=== PATIENT | female | born 1960 | race Caucasian/White ===

== ENCOUNTER 2021-05-18 02:59 | Inpatient (IN) | payer BC ==
--- NOTE | 2021-05-18 03:33 | EDPHYS ---
Physician Documentation [facility] Name: Mabel Gastelum Age: 61 yrs Sex: Female : 1960 Arrival Date: 05/18/2021 Time: 03:00 Bed 4 Private MD: ED Physician Anton Quinones HPI: 05/18 03:26 This 61 yrs old Female presents to ER via EMS with complaints of Shortness Of jana Breath. 03:26 The patient has shortness of breath at rest, with light activity. Onset: The jana symptoms/episode began/occurred 1 day(s) ago. Duration: The symptoms are continuous, and are steadily getting worse. The patient's shortness of breath is aggravated by coughing, supine position, talking, walking, is alleviated by elevating head, rest, application of supplemental oxygen. Associated signs and symptoms: Pertinent positives: non-productive cough. Severity of symptoms: At their worst the symptoms were mild moderate in the emergency department the symptoms are unchanged. The patient has not experienced similar symptoms in the past. Historical: - Allergies: 03:03 No Known Allergies; em - PMHx: 03:03 Asthma; em - Immunization history:: Adult Immunizations up to date. - Social history:: Smoking status: Patient denies any tobacco usage or history of. - Family history:: not pertinent. ROS: 03:26 Constitutional: Negative for fever, chills, and weight loss, Eyes: Negative for injury, jana pain, redness, and discharge, ENT: Negative for injury, pain, and discharge, Neck: Negative for injury, pain, and swelling, Cardiovascular: Negative for chest pain, palpitations, and edema, Abdomen/GI: Negative for abdominal pain, nausea, vomiting, diarrhea, and constipation, Back: Negative for injury and pain, : Negative for injury, bleeding, discharge, and swelling, MS/Extremity: Negative for injury and deformity, Skin: Negative for injury, rash, and discoloration, Neuro: Negative for headache, weakness, numbness, tingling, and seizure, Psych: Negative for depression, anxiety, suicide ideation, homicidal ideation, and hallucinations, Allergy/Immunology: Negative for hives, rash, and allergies, Endocrine: Negative for neck swelling, polydipsia, polyuria, polyphagia, and marked weight changes, Hematologic/Lymphatic: Negative for swollen nodes, abnormal bleeding, and unusual bruising. 03:26 Respiratory: Positive for cough, shortness of breath, wheezing, expiratory. Exam: 03:27 Constitutional: This is a well developed, well nourished patient who is awake, alert, jana and in no acute distress. Head/Face: Normocephalic, atraumatic. Eyes: Pupils equal round and reactive to light, extra-ocular motions intact. Lids and lashes normal. Conjunctiva and sclera are non-icteric and not injected. Cornea within normal limits. Periorbital areas with no swelling, redness, or edema. ENT: Nares patent. No nasal discharge, no septal abnormalities noted. Tympanic membranes are normal and external auditory canals are clear. Oropharynx with no redness, swelling, or masses, exudates, or evidence of obstruction, uvula midline. Mucous membranes moist. Neck: Trachea midline, no thyromegaly or masses palpated, and no cervical lymphadenopathy. Supple, full range of motion without nuchal rigidity, or vertebral point tenderness. No Meningismus. Chest/axilla: Normal chest wall appearance and motion. Nontender with no deformity. No lesions are appreciated. Cardiovascular: Regular rate and rhythm with a normal S1 and S2. No gallops, murmurs, or rubs. Normal PMI, no JVD. No pulse deficits. Abdomen/GI: Soft, non-tender, with normal bowel sounds. No distension or tympany. No guarding or rebound. No evidence of tenderness throughout. Back: No spinal tenderness. No costovertebral tenderness. Full range of motion. Female : Normal external genitalia. Skin: Warm, dry with normal turgor. Normal color with no rashes, no lesions, and no evidence of cellulitis. MS/ Extremity: Pulses equal, no cyanosis. Neurovascular intact. Full, normal range of motion. Neuro: Awake and alert, GCS 15, oriented to person, place, time, and situation. Cranial nerves II-XII grossly intact. Motor strength 5/5 in all extremities. Sensory grossly intact. Cerebellar exam normal. Normal gait. Psych: Awake, alert, with orientation to person, place and time. Behavior, mood, and affect are within normal limits. 03:27 Respiratory: the patient does not display signs of respiratory distress, Respirations: labored breathing, that is mild, Breath sounds: bronchial sounds, that are mild, are scattered, decreased breath sounds, that are mild, are scattered, rhonchi, that are moderate, are heard in the right upper lobe, right posterior upper lobe and right posterior middle lobe, Respiratory rate: 22 04:40 ECG was reviewed by the Attending Physician. [facility] Vital Signs: 03:01 BP 111 / 94; Pulse 81; Resp 22; Pulse Ox 100% on R/A; em 03:05 Temp 98.9; em 04:11 Weight 77.11 kg (R); Height 5 ft. 6 in. (167.64 cm); em 19:50 BP 108 / 82; Pulse 55; Resp 22; Temp 99; Pulse Ox 97% on 6 lpm NC; ea 04:11 Body Mass Index 27.44 (77.11 kg, 167.64 cm) em MDM: 03:09 Patient medically screened. jana 03:28 Differential diagnosis: Anxiety Reaction Bronchitis CHF exacerbation, Chronic jana Obstructive Pulmonary Disease Myocardial Infarction pneumonia, Pneumothorax pulmonary edema, Pulmonary Embolism reactive airway disease. Antibiotic administration: Rocephin and Zithromax given. The patient's Wells Deep Vein Thrombosis Score was calculated as follows: Total Score: 0-2 Pts- Low Risk. The patient's pulmonary embolism risk score was calculated as follows: Total Score: 0-2 points. This patient was found to be at low risk for a pulmonary embolism by using the Well's assessment criteria. Immunization status: Influenza vaccine: Data reviewed: vital signs, nurses notes, lab test result(s), EKG, radiologic studies. Data interpreted: library monitor: rate is 81 beats/min, rhythm is regular, Pulse oximetry: on room air is 85 %. Test interpretation: by ED physician or midlevel provider: ECG, plain radiologic studies. Counseling: I had a detailed discussion with the patient and/or guardian regarding: the historical points, exam findings, and any diagnostic results supporting the discharge/admit diagnosis, lab results, radiology results, the need for further work-up and treatment in the hospital. 05/18 03:04 Order name: Basic Metabolic Panel 05/18 03:04 Order name: CBC with Diff la05/18 03:04 Order name: LFT's 05/18 03:04 Order name: Magnesium la05/18 03:04 Order name: NT PRO-BNP 05/18 03:04 Order name: PT-INR; Complete Time: 04:38 la1 05/18 03:04 Order name: Troponin (emerg Dept Use Only) la05/18 03:04 Order name: CRP la05/18 03:04 Order name: Ferritin la1 05/18 03:04 Order name: DD; Complete Time: 04:38 la1 05/18 03:04 Order name: Blood Culture Adult (2) la1 05/18 03:05 Order name: Basic Metabolic Panel EDMS 05/18 03:05 Order name: CBC with Automated Diff; Complete Time: 04:38 EDMS 05/18 03:05 Order name: COVID-19 : Document "Date of Symptom Onset" if Symptomatic. em 05/18 03:04 Order name: XRAY Chest (1 view) la05/18 03:04 Order name: EKG; Complete Time: 03:05 la1 05/18 03:04 Order name: Cardiac monitoring; Complete Time: 03:33 la05/18 03:04 Order name: EKG - Nurse/Tech; Complete Time: 04:40 la05/18 03:04 Order name: IV Saline Lock; Complete Time: 03:33 la05/18 03:04 Order name: Labs collected and sent; Complete Time: 03:33 la05/18 03:04 Order name: O2 Per Protocol; Complete Time: 03:33 la05/18 03:04 Order name: O2 Sat Monitoring; Complete Time: 03:33 la05/18 03:46 Order name: BIPAP em 05/18 06:12 Order name: SARS-COV-2 RT PCR EDMS EC:40 Rate is 67 beats/min. Rhythm is regular. QRS [place] is Normal. CA interval is normal. QRS jana interval is normal. QT interval is normal. No Q waves. T waves are Normal. No ST changes noted. Clinical impression: NSR w/ Non-specific ST/T Changes and No evidence of ischemia. Interpreted by me. Reviewed by me. Administered Medications: 03:33 Not Given (Physician Discretion): Ivermectin 12 mg PO once; as a single dose em 04:09 Drug: Rocephin (cefTRIAXone) 1 grams Route: IV; Rate: per protocol; Site: right em antecubital; 04:15 Follow up: Response: No adverse reaction; IV Status: Completed infusion; IV Intake: 10mlem 04:09 Drug: Zithromax (azithromycin) 500 mg Route: IVPB; Infused Over: 1 hrs; Site: right em antecubital; 05:34 Follow up: Response: No adverse reaction; IV Status: Completed infusion; IV Intake: em 250ml 04:09 Drug: Aspirin Chewable Tablet 162 mg Route: PO; em 04:15 Follow up: Response: No adverse reaction em 04:09 Drug: Pepcid (famotidine) 20 mg Route: IVP; Site: right antecubital; em 04:15 Follow up: Response: No adverse reaction em 04:09 Drug: Lovenox (enoxaparin) 40 mg Route: Sub-Q; Site: right lower abdomen; em 04:15 Follow up: Response: No adverse reaction em Disposition Summary: 05/18/21 03:33 Hospitalization Ordered Hospitalization Status: Inpatient Admission jana Provider: Soniya Barillas cha Condition: Stable jana Problem: new jana Symptoms: have improved jana Bed/Room Type: Standard jana Location: Telemetry/MedSurg (Inpatient)(05/18/21 17:30) eb Room Assignment: 402(05/18/21 17:30) eb Diagnosis - Hypoxemia jana - Dyspnea jana - Other viral pneumonia jana - Pneumonia due to SARS-associated coronavirus - Covid 19 jana - Obesity, unspecified jana Forms: - Medication Reconciliation Form jana - SBAR form jana Signatures: Dispatcher [employer] Jacinda Harris RN RN mw Anderson, Corey, MD MD cha Munoz, Edgar, RN RN em Attema, Lee, FNP-C ALVERT[facility]-Candi [place] Corrections: (The following items were deleted from the chart) 03:37 03:33 Telemetry/MedSurg (Inpatient) jana mw 03:37 03:33 jana mw 17:30 03:37 [facility] ER HOLD mw eb 17:30 03:37 ERHOLD- eb
--- NOTE | 2021-05-18 03:33 | ER ---
Nurse's Notes [facility] Name: Mabel Gastelum Age: 61 yrs Sex: Female : 1960 Arrival Date: 05/18/2021 Time: 03:00 Bed 4 Private MD: Diagnosis: Hypoxemia;Dyspnea;Other viral pneumonia;Pneumonia due to SARS-associated coronavirus-Covid 19;Obesity, unspecified Presentation: 05/18 03:01 Chief complaint: EMS states: tested positive for covid 3 weeks ago, developed shortness em of breath and a fever, was 85% RA at home, placed on BiPAP, was given 125 mg Solu-Medrol, 2 G magnesium sulfate, 3 albuterol treatments and 1 G Tylenol for fever, reports chest pain. Coronavirus screen: difficulty breathing, fever, shortness of breath, Client presents with at least one sign or symptom that may indicate coronavirus-19. Standard/surgical mask placed on the client. Provider contacted for isolation considerations. Ebola Screen: Patient negative for fever greater than or equal to 101.5 degrees Fahrenheit, and additional compatible Ebola Virus Disease symptoms Patient denies exposure to infectious person. Patient denies travel to an Ebola-affected area in the 21 days before illness onset. No symptoms or risks identified at this time. Initial Sepsis Screen: Does the patient meet any 2 criteria? No. Patient's initial sepsis screen is negative. Does the patient have a suspected source of infection? Yes: Productive cough/pneumonia. Risk Assessment: Do you want to hurt yourself or someone else? Patient reports no desire to harm self or others. Onset of symptoms was May 18, 2021. 03:01 Method Of Arrival: EMS: [facility] em 03:01 Acuity: MICHAEL 3 em Historical: - Allergies: 03:03 No Known Allergies; em - PMHx: 03:03 Asthma; em - Immunization history:: Adult Immunizations up to date. - Social history:: Smoking status: Patient denies any tobacco usage or history of. - Family history:: not pertinent. Screenin:04 Abuse screen: Denies threats or abuse. Nutritional screening: No deficits noted. em Tuberculosis screening: No symptoms or risk factors identified. Fall Risk None identified. Assessment: 03:00 General: Appears in no apparent distress. comfortable, Behavior is calm, cooperative, em appropriate for age, Reports fever for > 3 days. Pain: Complains of pain in chest Pain currently is 7 out of 10 on a pain scale. Neuro: Level of Consciousness is awake, alert, obeys commands, Oriented to person, place, time, situation, Appropriate for age. Cardiovascular: Reports chest pain, Capillary refill < 3 seconds Patient's skin is warm and dry. Rhythm is sinus rhythm. Respiratory: Airway is patent Respiratory effort is even, unlabored, Respiratory pattern is regular, symmetrical, Breath sounds are diminished bilaterally. Derm: Skin is intact, is healthy with good turgor, Skin is pink, warm \T\ dry. Musculoskeletal: Capillary refill < 3 seconds, Range of motion: intact in all extremities. 19:49 Reassessment: Patient and/or family updated on plan of care and expected duration. Pain ea level reassessed. Patient is alert, oriented x 3, equal unlabored respirations, skin warm/dry/pink. Pt remains on 6L per nasal cannula. Report given to receiving nurse, pt left ED via stretcher per ED nurse, pt tolerating well. Vital Signs: 03:01 BP 111 / 94; Pulse 81; Resp 22; Pulse Ox 100% on R/A; em 03:05 Temp 98.9; em 04:11 Weight 77.11 kg (R); Height 5 ft. 6 in. (167.64 cm); em 19:50 BP 108 / 82; Pulse 55; Resp 22; Temp 99; Pulse Ox 97% on 6 lpm NC; ea 04:11 Body Mass Index 27.44 (77.11 kg, 167.64 cm) em ED Course: 03:00 Patient arrived in ED. em 03:01 Kevin Erickson, RN is Primary Nurse. em 03:03 Triage completed. em 03:03 Arm band placed on. em 03:04 Patient has correct armband on for positive identification. em 03:09 Anton Quinones MD is Attending Physician. jana 03:30 Soniya Barillas MD is Hospitalizing Provider. jana 03:33 Maintain EMS IV. Dressing intact. Good blood return noted. Site clean \T\ dry. Gauge \T\ em site: 18 RAC. 04:10 XRAY Chest (1 view) In Process Unspecified. EDMS 04:12 No provider procedures requiring assistance completed. Patient admitted, IV remains in em place. 13:23 Primary Nurse role handed off by Kevin Erickson, RN robb Administered Medications: 03:33 Not Given (Physician Discretion): Ivermectin 12 mg PO once; as a single dose em 04:09 Drug: Rocephin (cefTRIAXone) 1 grams Route: IV; Rate: per protocol; Site: right em antecubital; 04:15 Follow up: Response: No adverse reaction; IV Status: Completed infusion; IV Intake: 10mlem 04:09 Drug: Zithromax (azithromycin) 500 mg Route: IVPB; Infused Over: 1 hrs; Site: right em antecubital; 05:34 Follow up: Response: No adverse reaction; IV Status: Completed infusion; IV Intake: em 250ml 04:09 Drug: Aspirin Chewable Tablet 162 mg Route: PO; em 04:15 Follow up: Response: No adverse reaction em 04:09 Drug: Pepcid (famotidine) 20 mg Route: IVP; Site: right antecubital; em 04:15 Follow up: Response: No adverse reaction em 04:09 Drug: Lovenox (enoxaparin) 40 mg Route: Sub-Q; Site: right lower abdomen; em 04:15 Follow up: Response: No adverse reaction em Intake: 04:15 IV: 10ml; Total: 10ml. em 05:34 IV: 250ml; Total: 260ml. em Outcome: 03:33 Decision to Hospitalize by Provider. jana 04:12 Admitted to ER Hold. Please see [facility] for further documentation. em 04:12 Condition: stable 04:12 Instructed on the need for admit, Demonstrated understanding of instructions. 19:51 Patient left the ED. ea Signatures: Dispatcher [employer] Anton Chavira MD MD cha Munoz, Edgar, RN RN Ebonie Justice RN RN ea Botello, Elizabeth eb
[2021-05-18 03:49] LABS: Absolute Lymphocytes (CBC) 0.3 K/uL (0.7-4.9); Basophils % 0.2 % (0-1.3); Hematocrit 40.4 % (36.0-45.0); Lymphocytes % 6.8 % (15.3-44.8); MPV 9.1 fL (7.6-11.3); RBC Red Blood Cell Count 4.61 M/uL (3.86-4.86)
[2021-05-18] MEDS ORDERED: AZITHROMYCIN 500 MG INJ IVPB ONE (04:05)
[2021-05-18] MEDS ORDERED: NA CHLORIDE 0.9% 250 ML ONE (04:05)
[2021-05-18] MEDS ORDERED: ENOXAPARIN 40 MG/0.4 ML SQ ONE ×2 (04:06→08:47)
[2021-05-18] MEDS ORDERED: FAMOTIDINE 20 MG/2 ML VIAL IV ONE (04:06)
[2021-05-18] MEDS ORDERED: CEFTRIAXONE/SWI 1gm 1 GM/10 ML SYR ONE (04:06)
[2021-05-18 04:12] LABS: Protime INR 0.97
--- NOTE | 2021-05-18 04:15 | P.HP ---
Certification for Inpatient Patient admitted to: Inpatient With expected LOS: >2 Midnights Patient will require the following post-hospital care: None Practitioner: I am a practitioner with admitting privileges, knowledge of patient current condition, hospital course, and medical plan of care. Services: Services provided to patient in accordance with Admission requirements found in Title 42 Section 412.3 of the Code of Federal Regulations <Laurent Clinton - Last Filed: 05/18/21 04:11> Patient History Date of Service: 05/18/21 Primary Care Provider: None Reason for admission: COVID-19 pneumonia History of Present Illness: 61-year-old female with history of asthma [facility]. Patient reports testing positive for Covid approximately 3 weeks prior. Patient was brought in by EMS on BiPAP for respiratory distress, room air saturations in the 80s. Patient evaluated in the emergency department, requiring submental oxygen to maintain saturations greater 90%, chest x-ray with Covid pattern, ED provider wishes to admit for hypoxic respiratory failure secondary to COVID-19 pneumonia. - Past Medical/Surgical History -: Asthma -: None Psychosocial/ Personal History: Patient lives with her son - Family History Family History: Reviewed- Non-Contributory - Social History Smoking Status: Never smoker Alcohol use: No CD- Drugs: No Caffeine use: Yes Place of Residence: Home <Laurent Clinton - Last Filed: 05/18/21 04:11> Date of Service: 05/18/21 <Soniya Barillas - Last Filed: 05/18/21 20:29> Review of Systems 10-point ROS is otherwise unremarkable General: Fever, Chills, Weakness, Malaise Respiratory: Cough, Dry, Shortness of Breath <OzLaurent - Last Filed: 05/18/21 04:11> Physical Examination - Physical Exam General: Alert, In no apparent distress HEENT: Atraumatic, PERRLA, Mucous membr. moist/pink, EOMI, Sclerae nonicteric Neck: Supple, 2+ carotid pulse no bruit, No LAD, Without JVD or thyroid abnormality Respiratory: Diminished, Other (Increased respiratory effort) Cardiovascular: Regular rate/rhythm, Normal S1 S2 Gastrointestinal: Normal bowel sounds, No tenderness Musculoskeletal: No tenderness Integumentary: No rashes Neurological: Normal gait, Normal speech, Normal strength at 5/5 x4 extr, Normal tone, Normal affect Lymphatics: No axilla or inguinal lymphadenopathy - Studies Laboratory Data (last 24 hrs) 05/18/21 03:25: WBC 4.90, Hgb 13.6, Hct 40.4, Plt Count 168 <Laurent Clinton - Last Filed: 05/18/21 04:11> - Studies Laboratory Data (last 24 hrs) 05/18/21 03:25: PT 11.6, INR 0.97 05/18/21 03:25: WBC 4.90, Hgb 13.6, Hct 40.4, Plt Count 168 05/18/21 03:25: Sodium 135 L, Potassium 4.0, BUN 14, Creatinine 0.75, Glucose 148 H, Magnesium 2.6 H, Total Bilirubin 0.5, AST 61 H, ALT 41, Alkaline Phosphatase 71 <Soniya Barillas - Last Filed: 05/18/21 20:29> Assessment and Plan - Plan Assessment: Acute hypoxic respiratory failure secondary to COVID-19 pneumonia complicated with history of asthma, obesity Plan: Acute hypoxic respiratory failure secondary to COVID-19 pneumonia complicated with history of asthma, obesity: Continue with IV steroids, oral supplements, supplemental oxygen as needed, respiratory therapy consult in place. Daily room air saturations. We will continue with ivermectin, patient likely candidate for baricitinib. Appreciate further input from pulmonology. DVT PPX: Lovenox Code status: Full Discharge Plan: Home Plan to discharge in: Greater than 2 days - Advance Directives Does patient have a Living Will: No Does patient have a Durable POA for Healthcare: No - Code Status/Comfort Care Code Status Assessed: Yes (Full code) Critical Care: No Time Spent Managing Pts Care (In Minutes): 55 <Laurent Clinton - Last Filed: 05/18/21 04:11> Date of Service: 05/18/21 Subjective: Patient remains tachypneic in on 5 L of oxygen. Physical Examination: Vitals: Afebrile vital signs are stable Physical exam: Cardiovascular: Within normal limits. Lungs: Diminished bilaterally Abdomen: Within normal limits Neuro: Awake, alert, oriented to person place and time Assessment: 1. COVID-19 pneumonia 2. Hypoxemia Plan: 1. Continue with current plan of care <Soniya Barillas - Last Filed: 05/18/21 20:29>
[2021-05-18] MEDS ORDERED: ALBUTEROL INHALER 60 PUFF/8 GM IH PRN (05:16)
[2021-05-18] MEDS ORDERED: ACETAMINOPHEN 500 MG TAB PO PRN (05:16)
[2021-05-18] MEDS ORDERED: MELATONIN 5 MG TABLET PO PRN (05:16)
[2021-05-18 05:51] LABS: Albumin 2.4 g/dL (3.4-5.0); Bilirubin Direct 0.2 mg/dL (0-0.2); Bilirubin Total 0.5 mg/dL (0.2-1.0); Magnesium 2.6 mg/dL (1.8-2.4); Protein, Total 6.3 g/dL (6.4-8.2); Troponin (Emerg Dept Use Only) 0.05 ng/mL (0.0-0.045)
[2021-05-18 06:07] LABS: Ferritin 538.3 ng/mL (8-388)
[2021-05-18] MEDS ORDERED: METHYLPREDNISOLONE 125 MG INJ ONE (08:46)
[2021-05-18] MEDS ORDERED: ZINC SULFATE 220 MG CAP ONE (08:46)
[2021-05-18] MEDS ORDERED: THIAMINE HCL 100 MG TABLET ONE (08:46)
[2021-05-18] MEDS ORDERED: VITAMIN D 1000 UNIT TAB ONE (08:47)
[2021-05-18] MEDS ORDERED: ASPIRIN EC 81 MG TAB PO ONE (08:47)
[2021-05-18] MEDS ORDERED: ASCORBIC ACID 500 MG TABLET ONE ×3 (08:47→17:57)
[2021-05-18] MEDS: ENOXAPARIN 40 MG/0.4 ML SQ SCH (09:00)
[2021-05-18] MEDS: ASPIRIN EC 81 MG TAB PO SCH (09:00)
[2021-05-18] MEDS: ZINC SULFATE 220 MG CAP PO SCH (09:00)
[2021-05-18] MEDS: IVERMECTIN 3 MG TABLET PO SCH (09:00)
[2021-05-18] MEDS: VITAMIN D 1000 UNIT TAB PO SCH (09:00)
[2021-05-18] MEDS: METHYLPREDNISOLONE 125 MG INJ IV SCH ×2 (09:00→20:25)
[2021-05-18] MEDS: THIAMINE HCL 100 MG TABLET PO SCH (09:00)
[2021-05-18] MEDS: ASCORBIC ACID 500 MG TABLET PO SCH ×4 (09:00→20:25)
--- NOTE | 2021-05-18 10:15 | RAD REPORT ---
EXAM DESCRIPTION: RAD - Chest Single View - 05/18/2021 4:10 am CLINICAL HISTORY: SOB Chest pain. COMPARISON: No comparisons FINDINGS: Portable technique limits examination quality. Moderate to significant asymmetric pulmonary opacities are present, greater on the right. This is eugenio picious for viral infection/ bronchitis. The heart is mildly enlarged in size. No displaced fractures .
[2021-05-18] MEDS ORDERED: ONDANSETRON 4 MG/2 ML VIAL ONE (10:22)
[2021-05-18] MEDS: ONDANSETRON 4 MG/2 ML VIAL IV PRN (10:30)
[2021-05-18] MEDS: BENZONATATE 100 MG CAP PO PRN (12:39)
[2021-05-18] MEDS ORDERED: BENZONATATE 100 MG CAP PO ONE (12:44)
[2021-05-18] MEDS ORDERED: ALBUTEROL INHALER 60 PUFF/8 GM IH ONE (15:12)
--- NOTE | 2021-05-18 20:31 | P.PN ---
Subjective Date of Service: 05/18/21 Patient doing well. No new complaints. Will need to arrange for home oxygen Review of Systems 10-point ROS is otherwise unremarkable Physical Examination - Vital Signs Temperature: 99 F Blood Pressure: 108/82 Pulse: 55 Respirations: 22 Pulse Ox (%): 94 - Physical Exam General: Alert, In no apparent distress, Oriented x3 HEENT: Atraumatic, PERRLA, EOMI Neck: Supple, JVD not distended Respiratory: Clear to auscultation bilaterally, Normal air movement Cardiovascular: Regular rate/rhythm, Normal S1 S2 Gastrointestinal: Normal bowel sounds, No tenderness Musculoskeletal: No tenderness Integumentary: No rashes Neurological: Normal speech, Normal tone, Normal affect Lymphatics: No axilla or inguinal lymphadenopathy - Studies Laboratory Data (last 24 hrs) 05/18/21 03:25: PT 11.6, INR 0.97 05/18/21 03:25: WBC 4.90, Hgb 13.6, Hct 40.4, Plt Count 168 05/18/21 03:25: Sodium 135 L, Potassium 4.0, BUN 14, Creatinine 0.75, Glucose 148 H, Magnesium 2.6 H, Total Bilirubin 0.5, AST 61 H, ALT 41, Alkaline Phosphatase 71 Medications List Reviewed: Yes Assessment & Plan - Problems (Diagnosis) (1) Pneumonia due to COVID-19 virus Current Visit: Yes Status: Acute - Plan 1. Continue with IV steroids 2. Monitor inflammatory markers 3. Repeat chest x-ray is symptoms are progressively worsening 4. O2 per protocol 5. Pulmonary consultation 6. Continue with albuterol inhaler therapy; also supportive care 7. GI and DVT prophylaxis Discharge Plan: Home Plan to discharge in: Greater than 2 days - Advance Directives Does patient have a Living Will: No Does patient have a Durable POA for Healthcare: No - Code Status/Comfort Care Code Status Assessed: Yes Code Status: Full Code Critical Care: No Time Spent Managing PTS Care (In Minutes): 35
[2021-05-19] MEDS: BENZONATATE 100 MG CAP PO PRN ×2 (01:29→08:59)
[2021-05-19] MEDS: ONDANSETRON 4 MG/2 ML VIAL IV PRN ×2 (04:01→12:36)
[2021-05-19 04:41] LABS: Absolute Lymphocytes (CBC) 0.3 K/uL (0.7-4.9); Basophils % 0.1 % (0-1.3); Hematocrit 38.1 % (36.0-45.0); Lymphocytes % 4.4 % (15.3-44.8); MPV 9.9 fL (7.6-11.3); RBC Red Blood Cell Count 4.29 M/uL (3.86-4.86)
[2021-05-19 05:04] LABS: ALT/SGPT 46 U/L (12-78); AST/SGOT 39 U/L (15-37); Albumin 2.4 g/dL (3.4-5.0); Alkaline Phosphatase 66 U/L (45-117); BUN Blood Urea Nitrogen 21 mg/dL (7-18); Bicarbonate 31 mmol/L (21-32); Bilirubin Total 0.4 mg/dL (0.2-1.0); Ferritin 464.8 ng/mL (8-388); Glucose Level 205 mg/dL (74-106); Potassium 4.1 mmol/L (3.5-5.1); Protein, Total 6.2 g/dL (6.4-8.2); Sodium Level 138 mmol/L (136-145); Thyroid Stimulating Hormone 0.772 uIU/mL (0.360-3.740)
[2021-05-19 07:17] LABS: Platelet Estimate ADEQ
[2021-05-19 07:18] LABS: Blood Morphology Comment NOT SEEN (NOT SEEN)
[2021-05-19] MEDS ORDERED: ALBUTEROL 2.5 MG/3 ML NEB SOL NEB PRN (07:49)
[2021-05-19] MEDS ORDERED: IPRATROPIUM BROM 0.5MG/2.5ML NEB PRN (07:49)
[2021-05-19] MEDS: ARFORMOTEROL TARTRATE 15 MCG/2 ML VIAL.NEB NEB SCH ×2 (08:30→20:25)
[2021-05-19] MEDS: ASPIRIN EC 81 MG TAB PO SCH (08:58)
[2021-05-19] MEDS: THIAMINE HCL 100 MG TABLET PO SCH (08:58)
[2021-05-19] MEDS: VITAMIN D 1000 UNIT TAB PO SCH (08:58)
[2021-05-19] MEDS: ASCORBIC ACID 500 MG TABLET PO SCH ×4 (08:58→20:44)
[2021-05-19] MEDS: ZINC SULFATE 220 MG CAP PO SCH (08:58)
[2021-05-19] MEDS: METHYLPREDNISOLONE 125 MG INJ IV SCH ×2 (08:59→20:45)
[2021-05-19] MEDS: ENOXAPARIN 40 MG/0.4 ML SQ SCH (08:59)
--- NOTE | 2021-05-19 09:07 | EKG ---
Test Date: 2021-05-18 Test Time: 04:38:44 [employer] Operator: JENNIFER MEASUREMENT RESULTS: Intervals: Rate: 67 MD: 168 QRSD: 86 QT: 404 QTc: 426 Hersey: P: 36 MD: 168 QRS: -49 T: 37 INTERPRETIVE STATEMENTS: Normal sinus rhythm Low voltage QRS Left anterior fascicular block Abnormal ECG No previous ECG available for comparison Electronically Signed On 05-19-21 09:04:09 CDT by Kieran Pearson
[2021-05-19 14:26] LABS: Urine Appearance CLOUDY (Clear); Urine Bilirubin NEGATIVE (Negative); Urine Blood NEGATIVE (Negative); Urine Color YELLOW (Yellow); Urine Glucose NEGATIVE (Negative); Urine Protein TRACE (Negative); Urine Specific Gravity 1.025 (1.005-1.030)
[2021-05-19 14:38] LABS: Urine Microscopic Reflex ORDER UMIC
[2021-05-19 14:44] LABS: Urine Amorphous Sediment 1+ /HPF (NONE SEEN); Urine Bacteria <20 /HPF (<20); Urine RBC NONE SEEN /HPF (NONE SEEN)
--- NOTE | 2021-05-19 17:19 | P.PN ---
Subjective Date of Service: 05/19/21 Primary Care Provider: None Chief Complaint: COVID-19 pneumonia Subjective: Improving Physical Examination - Vital Signs Temperature: 97.9 F Blood Pressure: 90/60 Pulse: 70 Respirations: 16 Pulse Ox (%): 92 - Studies Microbiology Data (last 24 hrs): 05/18/21 03:25 Blood - Blood Blood Culture Gram Stain - Final Medications List Reviewed: Yes Assessment & Plan Discharge Plan: Home Plan to discharge in: Greater than 2 days Physician Review Additional Text: COVID positive Chest x-ray COMPARISON: No comparisons FINDINGS: Portable technique limits examination quality. Moderate to significant asymmetric pulmonary opacities are present, greater on the right. This is suspicious for viral infection/ bronchitis. The heart is mildly enlarged in size. No displaced fractures. Physical exam: General: Alert, In no apparent distress, Oriented x3 HEENT: Atraumatic, PERRLA, EOMI Neck: Supple, JVD not distended Respiratory: Clear to auscultation bilaterally, Normal air movement, currently on 5 L per nasal cannula Cardiovascular: Regular rate/rhythm, Normal S1 S2 Gastrointestinal: Normal bowel sounds, No tenderness Musculoskeletal: No tenderness Integumentary: No rashes Neurological: Normal speech, Normal tone, Normal affect Lymphatics: No axilla or inguinal lymphadenopathy Impression: Acute respiratory failure with hypoxia secondary to bilateral Covid pneumonia Plan: 1. Continue with IV steroids, ivermectin and supplementation 2. Monitor inflammatory markersCRP and ferritin 3. Repeat chest x-ray 4. O2 per protocol. Respiratory to continue to wean off oxygen 5. Pulmonary consulted. Await recommendations 6. Continue with albuterol inhaler therapy; also supportive care 7. GI and DVT prophylaxis Advance care [id number] minutes: Home at discharge CODE STATUS: Full code DVT prophylaxis: Lovenox Time Spent Managing Pts Care (In Minutes): 55
[2021-05-19] MEDS ORDERED: METOPROLOL TARTRATE 5 MG/5 ML INJ IV STA (17:45)
[2021-05-19] MEDS: APIXABAN 5 MG TABLET PO SCH (20:45)
[2021-05-20 05:49] VITALS: BMI 27.4
--- NOTE | 2021-05-20 06:15 | P.PN ---
Subjective Date of Service: 05/20/21 Primary Care Provider: None Chief Complaint: COVID-19 pneumonia Subjective: Other (Patient reports improvement. Currently on 6 L per nasal cannula. Atrial fibrillation noted) Physical Examination - Vital Signs Temperature: 97.5 F Blood Pressure: 95/68 Pulse: 124 Respirations: 20 Pulse Ox (%): 90 - Studies Microbiology Data (last 24 hrs): 05/18/21 03:25 Blood - Blood Blood Culture Gram Stain - Final Medications List Reviewed: Yes Assessment & Plan Discharge Plan: Home Plan to discharge in: 72 Hours Physician Review Additional Text: COVID positive Chest x-ray COMPARISON: No comparisons FINDINGS: Portable technique limits examination quality. Moderate to significant asymmetric pulmonary opacities are present, greater on the right. This is suspicious for viral infection/ bronchitis. The heart is mildly enlarged in size. No displaced fractures. Follow-up chest x-ray: COMPARISON: Chest Single View dated 05/18/2021 FINDINGS: Widespread bilateral interstitial airspace disease that appears worsened in the right upper lobe and right lung base. Cardiomegaly.No acute osseous abnormality. No significant pleural effusions or pneumothorax. IMPRESSION: Worsened aeration in the right lung. Similar aeration of the left lung. Findings remain consistent with multifocal pneumonia. Physical exam: General: Alert, In no apparent distress, Oriented x3 HEENT: Atraumatic, PERRLA, EOMI Neck: Supple, JVD not distended Respiratory: Clear to auscultation bilaterally, Normal air movement, currently on 5-6 L per nasal cannula Cardiovascular: Atrial fibrillation rate around 110-120 Gastrointestinal: Normal bowel sounds, No tenderness Musculoskeletal: No tenderness Integumentary: No rashes Neurological: Normal speech, Normal tone, Normal affect Lymphatics: No axilla or inguinal lymphadenopathy Impression: Acute respiratory failure with hypoxia secondary to bilateral Covid pneumonia New onset atrial fibrillation Plan: Acute respiratory failure with hypoxia secondary to bilateral Covid pneumonia: Continue with IV steroids, ivermectin and supplementation. Respiratory to continue to wean off oxygen. Currently on 5-6 L per nasal cannula. CRP and ferritin improving. Will discuss with pulmonology. Anticipate continued improvement. Patient with new onset atrial fibrillation. Patient now on Eliquis for anticoagulation therapy. Patient was given metoprolol yesterday. Parameters in place. Blood pressure low. Patient given digoxin with improvement in heart rate. Will monitor closely. Case discussed with cardiology. Await recommendation. Anticipate continued improvement. New onset atrial fibrillation: Patient responding well to digoxin. Will monitor closely. If this persist patient will need IV amiodarone. If this is required patient will need to be transferred to ICU and placed on IV amiodarone drip. Patient will need central line initially. Will monitor with metoprolol and digoxin. Advance care [id number] minutes: Home at discharge CODE STATUS: Full code DVT prophylaxis: Bridgetqugerson Time Spent Managing Pts Care (In Minutes): 55
[2021-05-20 06:44] LABS: Absolute Lymphocytes (CBC) 0.3 K/uL (0.7-4.9); Basophils % 0.2 % (0-1.3); Hematocrit 37.8 % (36.0-45.0); Lymphocytes % 2.3 % (15.3-44.8); MPV 9.4 fL (7.6-11.3); RBC Red Blood Cell Count 4.29 M/uL (3.86-4.86)
[2021-05-20] MEDS: ONDANSETRON 4 MG/2 ML VIAL IV PRN (06:53)
[2021-05-20 07:08] LABS: Albumin 2.4 g/dL (3.4-5.0); Bilirubin Total 0.4 mg/dL (0.2-1.0); C-Reactive Protein 38.6 mg/L (<3.00); Potassium 4.5 mmol/L (3.5-5.1); Protein, Total 5.9 g/dL (6.4-8.2)
--- NOTE | 2021-05-20 07:36 | RAD REPORT ---
EXAM DESCRIPTION: RAD - Chest Single View - 05/20/2021 7:20 am CLINICAL HISTORY: Follow-up Covid COMPARISON: Chest Single View dated 05/18/2021 FINDINGS: Widespread bilateral interstitial airspace disease that appears worsened in the right uppe r lobe and right lung base. Cardiomegaly.No acute osseous abnormality. No significant pleural effusio ns or pneumothorax. IMPRESSION: Worsened aeration in the right lung. Similar aeration of the left lung. Findings remain consistent with multifocal pneumonia.
[2021-05-20] MEDS ORDERED: DIGOXIN 0.25 MG/ML AMP IV SCH ×2 (08:00→14:00)
[2021-05-20] MEDS ORDERED: LORazepam 2 MG/ML VIAL IV PRN (08:07)
[2021-05-20] MEDS: METHYLPREDNISOLONE 125 MG INJ IV SCH ×2 (08:25→20:36)
[2021-05-20] MEDS: APIXABAN 5 MG TABLET PO SCH ×2 (08:27→20:37)
[2021-05-20] MEDS: ZINC SULFATE 220 MG CAP PO SCH (08:27)
[2021-05-20] MEDS: ASPIRIN EC 81 MG TAB PO SCH (08:28)
[2021-05-20] MEDS: ASCORBIC ACID 500 MG TABLET PO SCH ×4 (08:28→20:37)
[2021-05-20] MEDS: IVERMECTIN 3 MG TABLET PO SCH (08:28)
[2021-05-20] MEDS: VITAMIN D 1000 UNIT TAB PO SCH (08:28)
[2021-05-20] MEDS: THIAMINE HCL 100 MG TABLET PO SCH (08:28)
[2021-05-20] MEDS: ARFORMOTEROL TARTRATE 15 MCG/2 ML VIAL.NEB NEB SCH ×2 (10:56→19:50)
[2021-05-20] MEDS ORDERED: POLYETHYL GLY 3350 17 GM/DOSE PO ONE (19:45)
[2021-05-21 04:20] LABS: Absolute Lymphocytes (CBC) 0.2 K/uL (0.7-4.9); Basophils % 0.2 % (0-1.3); Lymphocytes % 2.3 % (15.3-44.8); MPV 9.5 fL (7.6-11.3)
[2021-05-21 04:42] LABS: Albumin 2.4 g/dL (3.4-5.0); Bilirubin Total 0.5 mg/dL (0.2-1.0); C-Reactive Protein 21.3 mg/L (<3.00); Ferritin 217.9 ng/mL (8-388); Potassium 4.7 mmol/L (3.5-5.1); Protein, Total 5.7 g/dL (6.4-8.2)
--- NOTE | 2021-05-21 06:02 | P.PN ---
Subjective Date of Service: 05/21/21 Primary Care Provider: None Chief Complaint: COVID-19 pneumonia Subjective: Improving, Doing well Physical Examination - Vital Signs Temperature: 97.4 F Blood Pressure: 110/70 Pulse: 77 Respirations: 16 Pulse Ox (%): 93 - Studies Microbiology Data (last 24 hrs): 05/18/21 03:25 Blood - Blood Blood Culture Gram Stain - Final Medications List Reviewed: Yes Assessment & Plan Discharge Plan: Home Plan to discharge in: 24 Hours Physician Review Additional Text: COVID positive Chest x-ray COMPARISON: No comparisons FINDINGS: Portable technique limits examination quality. Moderate to significant asymmetric pulmonary opacities are present, greater on the right. This is suspicious for viral infection/ bronchitis. The heart is mildly enlarged in size. No displaced fractures. Follow-up chest x-ray: COMPARISON: Chest Single View dated 05/18/2021 FINDINGS: Widespread bilateral interstitial airspace disease that appears worsened in the right upper lobe and right lung base. Cardiomegaly.No acute osseous abnormality. No significant pleural effusions or pneumothorax. IMPRESSION: Worsened aeration in the right lung. Similar aeration of the left lung. Findings remain consistent with multifocal pneumonia. Physical exam: General: Alert, In no apparent distress, Oriented x3 HEENT: Atraumatic, PERRLA, EOMI Neck: Supple, JVD not distended Respiratory: Clear to auscultation bilaterally, Normal air movement, less oxygen requirement down to 4 to 6 L. Cardiovascular: Atrial fibrillation rate around 110-120 Gastrointestinal: Normal bowel sounds, No tenderness Musculoskeletal: No tenderness Integumentary: No rashes Neurological: Normal speech, Normal tone, Normal affect Lymphatics: No axilla or inguinal lymphadenopathy Impression: Acute respiratory failure with hypoxia secondary to bilateral Covid pneumonia New onset atrial fibrillation Plan: Acute respiratory failure with hypoxia secondary to bilateral Covid pneumonia: Patient continues to improve. Continue with IV steroids, ivermectin and supplementation. Respiratory to continue to wean off oxygen. Currently on 4 to 5 L per nasal cannula. CRP and ferritin improving. Anticipate home tomorrow if she remains less than 4 L per nasal cannula. A. fib rate better controlled with digoxin. Will start digoxin daily. Continue with metoprolol with parameters in place. Patient remains on Eliquis. Case discussed with pulmonology and cardiology. New onset atrial fibrillation: Patient responding well to digoxin. We will continue with digoxin daily. Metoprolol added with parameters in place. Advance care [id number] minutes: Home at discharge with home oxygen CODE STATUS: Full code DVT prophylaxis: Eliquis Time Spent Managing Pts Care (In Minutes): 55
--- NOTE | 2021-05-21 07:43 | EKG ---
Test Date: 2021-05-19 Test Time: 17:27:19 Swimming Pool Serviceperson: CHRIS Vallecillo MEASUREMENT RESULTS: Intervals: Rate: 136 ND: QRSD: 82 QT: 314 QTc: 472 [place]: P: ND: QRS: -45 T: -2 INTERPRETIVE STATEMENTS: Atrial fibrillation with rapid ventricular response Left anterior fascicular block Cannot rule out Inferior infarct (masked by fascicular block?), age undetermined Cannot rule out Anterior infarct, age undetermined Abnormal ECG Compared to ECG 05/18/2021 04:38:44 Myocardial infarct finding now present Sinus rhythm no longer present Electronically Signed On 05-21-21 07:39:58 CDT by Kieran Pearson
--- NOTE | 2021-05-21 08:22 | ECHO ---
HEIGHT: 5 ft 6 in WEIGHT: 170 lb 0 oz DATE OF STUDY: 05/20/[address]: Laurent Clinton NP 2-DIMENSIONAL: YES M.MODE: YES DOPPLER: YES COLOR FLOW: YES TDS: PORTABLE: YES DEFINITY: BUBBLE STUDY: DIAGNOSIS: NEW ONSET ATRIAL FIBRILLATION CARDIAC HISTORY: CATHERIZATION: NO SURGERY: NO PROSTHETIC VALVE: NO PACEMAKER: NO MEASUREMENTS (cm) DIASTOLIC (NORMALS) SYSTOLIC (NORMALS) IVSd 1.1 (0.6-1.2) LA Diam 2.6 (1.9-4.0) LVEF 51% LVIDd 4.3 (3.5-5.7) LVIDs 3.2 (2.0-3.5) %FS 25% LVPWd 1.2 (0.6-1.2) Ao Diam 3.0 (2.0-3.7) 2 DIMENSIONAL ASSESSMENT: RIGHT ATRIUM: NORMAL LEFT ATRIUM: NORMAL RIGHT VENTRICLE: NORMAL LEFT VENTRICLE: NORMAL TRICUSPID VALVE: NORMAL MITRAL VALVE: NORMAL PULMONIC VALVE: NORMAL AORTIC VALVE: NORMAL PERICARDIAL EFFUSION: NONE AORTIC ROOT: NORMAL LEFT VENTRICULAR WALL MOTION: NORMAL DOPPLER/COLOR FLOW: NORMAL COMMENTS: ATRIAL FIBRILLATION. NORMAL LEFT ATRIAL SIZE - NO THOMBUS. NORMAL LEFT VENTRICULAR EJECTION FRACTION AND SIZE. TECHNOLOGIST: JEREMIE VALLADARES
[2021-05-21] MEDS: THIAMINE HCL 100 MG TABLET PO SCH (08:51)
[2021-05-21] MEDS: ASPIRIN EC 81 MG TAB PO SCH (08:51)
[2021-05-21] MEDS: VITAMIN D 1000 UNIT TAB PO SCH (08:51)
[2021-05-21] MEDS: METHYLPREDNISOLONE 125 MG INJ IV SCH ×2 (08:52→21:00)
[2021-05-21] MEDS: BENZONATATE 100 MG CAP PO PRN (08:52)
[2021-05-21] MEDS: APIXABAN 5 MG TABLET PO SCH ×2 (08:52→21:00)
[2021-05-21] MEDS: ZINC SULFATE 220 MG CAP PO SCH (08:52)
[2021-05-21] MEDS: ASCORBIC ACID 500 MG TABLET PO SCH ×4 (08:52→21:00)
[2021-05-21] MEDS: METOPROLOL TAR 25 MG TAB PO SCH ×2 (08:54→17:38)
[2021-05-21] MEDS: ARFORMOTEROL TARTRATE 15 MCG/2 ML VIAL.NEB NEB SCH ×2 (09:29→20:00)
[2021-05-22 04:58] LABS: Absolute Lymphocytes (CBC) 0.3 K/uL (0.7-4.9); Basophils % 0.3 % (0-1.3); Lymphocytes % 2.5 % (15.3-44.8); MPV 9.5 fL (7.6-11.3); RBC Red Blood Cell Count 4.25 M/uL (3.86-4.86)
[2021-05-22 05:18] LABS: Albumin 2.4 g/dL (3.4-5.0); Bilirubin Total 0.4 mg/dL (0.2-1.0); C-Reactive Protein 11.9 mg/L (<3.00); Ferritin 170.3 ng/mL (8-388); Potassium 5.1 mmol/L (3.5-5.1); Protein, Total 5.7 g/dL (6.4-8.2)
[2021-05-22] MEDS: METOPROLOL TAR 25 MG TAB PO SCH (05:21)
--- NOTE | 2021-05-22 06:04 | P.PN ---
Subjective Date of Service: 05/22/21 Primary Care Provider: None Chief Complaint: COVID-19 pneumonia Subjective: Improving, Doing well Physical Examination - Vital Signs Temperature: 97.3 F Blood Pressure: 121/70 Pulse: 56 Respirations: 16 Pulse Ox (%): 93 - Studies Medications List Reviewed: Yes Assessment & Plan Discharge Plan: Home Physician Review Additional Text: COVID positive Chest x-ray COMPARISON: No comparisons FINDINGS: Portable technique limits examination quality. Moderate to significant asymmetric pulmonary opacities are present, greater on the right. This is suspicious for viral infection/ bronchitis. The heart is mildly enlarged in size. No displaced fractures. Follow-up chest x-ray: COMPARISON: Chest Single View dated 05/18/2021 FINDINGS: Widespread bilateral interstitial airspace disease that appears worsened in the right upper lobe and right lung base. Cardiomegaly.No acute o sseous abnormality. No significant pleural effusions or pneumothorax. IMPRESSION: Worsened aeration in the right lung. Similar aeration of the left lung. Findings remain consistent with multifocal pneumonia. ECHO: MEASUREMENTS (cm) DIASTOLIC (NORMALS) SYSTOLIC (NORMALS) IVSd 1.1 (0.6-1.2) LA Diam 2.6 (1.9-4.0) LVEF 51% LVIDd 4.3 (3.5-5.7) LVIDs 3.2 (2.0-3.5) %FS 25% LVPWd 1.2 (0.6-1.2) Ao Diam 3.0 (2.0-3.7) 2 DIMENSIONAL ASSESSMENT: RIGHT ATRIUM: NORMAL LEFT ATRIUM: NORMAL RIGHT VENTRICLE: NORMAL LEFT VENTRICLE: NORMAL TRICUSPID VALVE: NORMAL MITRAL VALVE: NORMAL PULMONIC VALVE: NORMAL AORTIC VALVE: NORMAL PERICARDIAL EFFUSION: NONE AORTIC ROOT: NORMAL LEFT VENTRICULAR WALL MOTION: NORMAL DOPPLER/COLOR FLOW: NORMAL COMMENTS: ATRIAL FIBRILLATION. NORMAL LEFT ATRIAL SIZE NO THOMBUS. NORMAL LEFT VENTRICULAR EJECTION FRACTION AND SIZE. Physical exam: General: Alert, In no apparent distress, Oriented x3 HEENT: Atraumatic, PERRLA, EOMI Neck: Supple, JVD not distended Respiratory: Clear bilateral. Currently on 4 L per nasal cannula. Cardiovascular: Normal sinus rhythm with rate control Gastrointestinal: Normal bowel sounds, No tenderness Musculoskeletal: No tenderness Integumentary: No rashes Neurological: Normal speech, Normal tone, Normal affect Lymphatics: No axilla or inguinal lymphadenopathy Impression: Acute respiratory failure with hypoxia secondary to bilateral Covid pneumonia New onset atrial fibrillation Plan: Acute respiratory failure with hypoxia secondary to bilateral Covid pneumonia: Patient doing well at this time. Currently on 4 L and ambulating. We will plan for discharge today. Patient will need home oxygen. Continue with Covid treatment. New onset atrial fibrillation: Patient now in normal sinus rhythm. Continue with metoprolol only. Parameters in place. Patient will need chronic anticoagulation therapy at discharge. Advance care [id number] minutes: Home at discharge with home oxygen CODE STATUS: Full code DVT prophylaxis: Eliquis Time Spent Managing Pts Care (In Minutes): 55
[2021-05-22] MEDS: THIAMINE HCL 100 MG TABLET PO SCH (08:16)
[2021-05-22] MEDS: ZINC SULFATE 220 MG CAP PO SCH (08:16)
[2021-05-22] MEDS: ASPIRIN EC 81 MG TAB PO SCH (08:16)
[2021-05-22] MEDS: ASCORBIC ACID 500 MG TABLET PO SCH (08:16)
[2021-05-22] MEDS: VITAMIN D 1000 UNIT TAB PO SCH (08:16)
[2021-05-22] MEDS: BENZONATATE 100 MG CAP PO PRN (08:17)
[2021-05-22] MEDS: APIXABAN 5 MG TABLET PO SCH (08:17)
[2021-05-22] MEDS ORDERED: predniSONE 20 MG TAB PO SCH (09:00)
[2021-05-22 09:11] VITALS: BP 121/70; TEMP 97.3
--- NOTE | 2021-05-22 09:16 | P.DS ---
Admission Date: 05/18/21 Discharge Date: 05/22/21 Primary Care Provider: None Disposition: ROUTINE DISCHARGE Discharge Condition: GOOD Reason for Admission: COVID-19 pneumonia Consultations: Pulmonary-Dr. Galindo Cardiology-Dr. Pearson Procedures: COVID positive, partially vaccinated-Moderna Chest x-ray COMPARISON: No comparisons FINDINGS: Portable technique limits examination quality. Moderate to significant asymmetric pulmonary opacities are present, greater on the right. This is suspicious for viral infection/ bronchitis. The heart is mildly enlarged in size. No displaced fractures. Follow-up chest x-ray: COMPARISON: Chest Single View dated 05/18/2021 FINDINGS: Widespread bilateral interstitial airspace disease that appears worsened in the right upper lobe and right lung base. Cardiomegaly.No acute osseous abnormality. No significant pleural effusions or pneumothorax. IMPRESSION: Worsened aeration in the right lung. Similar aeration of the left lung. Findings remain consistent with multifocal pneumonia. ECHO: MEASUREMENTS (cm) DIASTOLIC (NORMALS) SYSTOLIC (NORMALS) IVSd 1.1 (0.6-1.2) LA Diam 2.6 (1.9-4.0) LVEF 51% LVIDd 4.3 (3.5-5.7) LVIDs 3.2 (2.0-3.5) %FS 25% LVPWd 1.2 (0.6-1.2) Ao Diam 3.0 (2.0-3.7) 2 DIMENSIONAL ASSESSMENT: RIGHT ATRIUM: NORMAL LEFT ATRIUM: NORMAL RIGHT VENTRICLE: NORMAL LEFT VENTRICLE: NORMAL TRICUSPID VALVE: NORMAL MITRAL VALVE: NORMAL PULMONIC VALVE: NORMAL AORTIC VALVE: NORMAL PERICARDIAL EFFUSION: NONE AORTIC ROOT: NORMAL LEFT VENTRICULAR WALL MOTION: NORMAL DOPPLER/COLOR FLOW: NORMAL COMMENTS: ATRIAL FIBRILLATION. NORMAL LEFT ATRIAL SIZE NO THOMBUS. NORMAL LEFT VENTRICULAR EJECTION FRACTION AND SIZE. Medical problem list: Acute respiratory failure with hypoxia secondary to bilateral Covid pneumonia, Partially vaccinated-Moderna New onset atrial fibrillation Asthma Brief History of Present Illness: 61-year-old female with history of asthma presented with shortness of breath. Patient had tested positive about 3 weeks ago with Covid 19. Patient was brought in by EMS on BiPAP due to acute respiratory failure with hypoxia. Chest x-ray showed Covid pattern. Patient was admitted for treatment. Hospital Course: Patient presented with acute respiratory failure with hypoxia secondary to bilateral Covid pneumonia. Patient was partially vaccinated with receiving med during her vaccine in the past. She had yet to receive her second dose. During the course of her stay patient required IV steroids and breathing treatments. P atient with history of asthma. Patient was seen and evaluated by pulmonology. Her condition improved. At discharge patient able to ambulate with oxygen at 4 L. No significant desaturations. At discharge the patient will continue with home oxygen to maintain sats above 93%. She is to monitor her oxygen saturations. She will continue with home oxygen at 4 L. At discharge she will continue with prednisone 20 mg 1 pill twice daily for 7 days then 1 pill once daily for 7 days. The patient will be provided Tessalon Perles 100 mg 3 times a day as needed for cough. At discharge she will also continue with vitamin supplementation including vitamin D 2000 units daily, vitamin C 500 mg 1 pill 3 times a day, zinc 220 mg daily, and thiamine 100 mg 1 pill twice daily. Patient will continue with incentive spirometer, proning, facemask use and handwashing. Patient will continue with COVID-19 recommendations on quarantine. Recommend to follow-up with pulmonology in 1 to 2 weeks to follow-up his hospitalization. Pulmonology will help patient wean off oxygen. Recommend to establish care with a PCP in the area to follow-up this hospitalization. During the course of her stay patient had new onset atrial fibrillation. Patient responded well to beta-lee therapy and digoxin. Patient was seen and evaluated by cardiology. Echocardiogram unremarkable. Patient was placed on anticoagulation therapy. At discharge digoxin was discontinued. At discharge she will continue with metoprolol 12.5 mg 1 pill twice daily. Recommend to hold medication if blood pressure systolic less than 110 or heart rate less than 60. At discharge the patient will continue with Eliquis 5 mg 1 pill twice daily for chronic anticoagulation therapy. At discharge the patient will be provided information on Eliquis, atrial fibrillation. Recommend follow- up with cardiology in 2 to 4 weeks to follow-up his hospitalization. Patient with underlying asthma. At discharge the patient will continue with Advair 1 puff twice daily and Xopenex 1 puff 3 times a day as needed for shortness of breath. Recommend follow-up with pulmonology to further monitor and address. Vital Signs/Physical Exam: Temp Pulse Resp BP Pulse Ox 97.3 F 56 16 121/70 93 05/22/21 09:11 05/22/21 09:11 05/22/21 09:11 05/22/21 09:11 05/22/21 09:11 General: Alert, In no apparent distress, Oriented x3, Cooperative HEENT: Atraumatic Neck: Supple Respiratory: Clear to auscultation bilaterally, Normal air movement Cardiovascular: Normal pulses, Regular rate/rhythm Gastrointestinal: Normal bowel sounds, No tenderness, No masses, No rebound, No guarding Musculoskeletal: No erythema, No tenderness, No warmth Integumentary: No tenderness/swelling Neurological: Normal speech, Normal strength at 5/5 x4 extr, Normal tone, Normal affect Laboratory Data at Discharge: WBC 10.30 K/uL (4.3-10.9) D 05/22/21 04:43 Hgb 12.5 g/dL (12.0-15.0) 05/22/21 04:43 Hct 38.0 % (36.0-45.0) 05/22/21 04:43 Plt Count 269 K/uL (152-406) 05/22/21 04:43 PT 11.6 SECONDS (9.2-12.8) 05/18/21 03:25 INR 0.97 05/18/21 03:25 Sodium 138 mmol/L (136-145) 05/22/21 04:43 Potassium 5.1 mmol/L (3.5-5.1) 05/22/21 04:43 BUN 23 mg/dL (7-18) H 05/22/21 04:43 Creatinine 0.75 mg/dL (0.55-1.3) 05/22/21 04:43 Glucose 289 mg/dL (74-106) H 05/22/21 04:43 Magnesium 2.6 mg/dL (1.8-2.4) H 05/18/21 03:25 Total Bilirubin 0.4 mg/dL (0.2-1.0) 05/22/21 04:43 AST 12 U/L (15-37) L 05/22/21 04:43 ALT 43 U/L (12-78) 05/22/21 04:43 Alkaline Phosphatase 54 U/L (45-117) 05/22/21 04:43 Home Medications: Apixaban [Eliquis] 5 mg PO BID #60 tablet 05/22/21 Ascorbic Acid [Vitamin C*] 500 mg PO TID #90 tablet 05/22/21 Benzonatate [Tessalon Perle*] 100 mg PO TID PRN #10 cap 05/22/21 Cholecalciferol (Vitamin D3) [Vitamin D 1000 Iu Tab*] 2,000 unit PO DAILY #60 tab 05/22/21 Fluticasone/Salmeterol [Advair 250-50 Diskus] 1 puff IH BID #1 blst.w.dev 05/22/21 Levalbuterol Tartrate [Xopenex Hfa] 1 puff IH TID PRN #1 hfa.aer.ad 05/22/21 Metoprolol Tartrate [Lopressor*] 12.5 mg PO BID 6AM 6PM #60 tab 05/22/21 Thiamine HCl [Vitamin B-1*] 200 mg PO DAILY #60 tablet 05/22/21 Zinc Sulfate [Zinc Sulfate*] 220 mg PO DAILY #30 cap 05/22/21 predniSONE [Prednisone*] 20 mg PO SEECOM #21 tab 05/22/21 New Medications: Fluticasone/Salmeterol [Advair 250-50 Diskus] 1 puff IH BID #1 blst.w.dev Apixaban [Eliquis] 5 mg PO BID #60 tablet Metoprolol Tartrate [Lopressor*] 12.5 mg PO BID 6AM 6PM #60 tab predniSONE [Prednisone*] 20 mg PO SEECOM #21 tab Benzonatate [Tessalon Perle*] 100 mg PO TID PRN #10 cap PRN Reason: Cough Thiamine HCl [Vitamin B-1*] 200 mg PO DAILY #60 tablet Ascorbic Acid [Vitamin C*] 500 mg PO TID #90 tablet Cholecalciferol (Vitamin D3) [Vitamin D 1000 Iu Tab*] 2,000 unit PO DAILY #60 tab Levalbuterol Tartrate [Xopenex Hfa] 1 puff IH TID PRN #1 hfa.aer.ad PRN Reason: Shortness Of Breath Zinc Sulfate [Zinc Sulfate*] 220 mg PO DAILY #30 cap Physician Discharge Instructions: Patient presented with acute respiratory failure with hypoxia secondary to bilateral Covid pneumonia. Patient was partially vaccinated with receiving med during her vaccine in the past. She had yet to receive her second dose. During the course of her stay patient required IV steroids and breathing treatments. Patient with history of asthma. Patient was seen and evaluated by pulmonology. Her condition improved. At discharge patient able to ambulate with oxygen at 4 L. No significant desaturations. At discharge the patient will continue with home oxygen to maintain sats above 93%. She is to monitor her oxygen saturations. She will continue with home oxygen at 4 L. At discharge she will continue with prednisone 20 mg 1 pill twice daily for 7 days then 1 pill once daily for 7 days. The patient will be provided Tessalon Perles 100 mg 3 times a day as needed for cough. At discharge she will also continue with vitamin s upplementation including vitamin D 2000 units daily, vitamin C 500 mg 1 pill 3 times a day, zinc 220 mg daily, and thiamine 100 mg 1 pill twice daily. Patient will continue with incentive spirometer, proning, facemask use and handwashing. Patient will continue with COVID-19 recommendations on quarantine. Recommend to follow-up with pulmonology in 1 to 2 weeks to follow-up his hospitalization. Pulmonology will help patient wean off oxygen. Recommend to establish care with a PCP in the area to follow-up this hospitalization. During the course of her stay patient had new onset atrial fibrillation. Patient responded well to beta-lee therapy and digoxin. Patient was seen and evaluated by cardiology. Echocardiogram unremarkable. Patient was placed on anticoagulation therapy. At discharge digoxin was discontinued. At discharge she will continue with metoprolol 12.5 mg 1 pill twice daily. Recommend to hold medication if blood pressure systolic less than 110 or heart rate less than 60. At discharge the patient will continue with Eliquis 5 mg 1 pill twice daily for chronic anticoagulation therapy. At discharge the patient will be provided information on Eliquis, atrial fibrillation. Recommend follow- up with cardiology in 2 to 4 weeks to follow-up his hospitalization. Patient with underlying asthma. At discharge the patient will continue with Advair 1 puff twice daily and Xopenex 1 puff 3 times a day as needed for shortness of breath. Recommend follow-up with pulmonology to further monitor and address. Diet: AHA Activity: Ad gaurang Followup: NONE,NONE [Primary Care Provider] - Time spent managing pt's care (in minutes): 55
[2021-05-22] MEDS: ARFORMOTEROL TARTRATE 15 MCG/2 ML VIAL.NEB NEB SCH (09:43)
[2021-05-22 10:45] VITALS: O2SAT 94
[2021-05-22] MEDS ORDERED: DIGOXIN 0.125 MG TABLET PO SCH (12:10)
--- NOTE | 2021-05-22 12:12 | CON ---
Ms. Gastelum is 61, was admitted to Dr. Pang' service on 05/18/2021 for shortness of breath. Chest x- ray showed suspicion for viral infection, bronchitis. She also has some mild cardiomegaly. She had an EKG, showed atrial fibrillation with rapid ventricular response that is new onset. Her initial EK G when she came in with normal sinus rhythm, I was consulted to give my opinion about her atrial fibr illation. She had already had an echocardiogram, which was perfectly normal. This certainly could b e secondary to her viral pneumonia. I suggested that we treat this with Eliquis and digoxin as well as beta-blockers for rate control that failed. We can certainly switch her to IV amiodarone down the road. I am hoping that this is temporary, but I would aim for rate control again with metoprolol, d igoxin, and Eliquis and if this becomes an issue, that has become more involved in the case. I will be available for questions. TITA/CAIN Voice ID: [id number] Report ID: [id number]
== END 2021-05-22 10:59 | disposition home or self-care (01) | DRG 177 ==
LOC: ER 02:59 → ERHOLD 03:31 → 4TH 19:44
PROVIDERS: ADMIT Hospitalist; ATTEND Hospitalist
PROC: 5A09357 Assistance with Respiratory Ventilation, Less than 24 Consecutive Hours, Continuous Positive Airway Pressure (ICD-10-PCS; principal; 2021-05-18)
DX: U07.1 COVID-19 (principal); J12.82 Pneumonia due to coronavirus disease 2019; J96.01 Acute respiratory failure with hypoxia; I48.91 Unspecified atrial fibrillation; J45.909 Unspecified asthma, uncomplicated
CPT/HCPCS: 36415; 71045; 80048; 80053; 80076; 81003; 81015; 82728; 83735; 83880; 84439; 84443; 84484; 85025; 85379; 85610; 86140; 87040; 87077; 87186; 87205; 93005; 93306; 94010; 94640; 94660; 94760; 96365; 96372; 96375; 99285; J0456; J0696; J1160; J1650; J2405; J2930; J7050; J7512; J7605; U0003

== ENCOUNTER 2023-08-22 09:31 | Emergency (ER) | payer BC ==
--- OUTSIDE RECORDS SUMMARY | 2023-08-22 09:35 | XMS REPORT | Continuity of Care Document ---
:1960 Author Organization [facility] t Address [address] [place] [address] Care Team Providers Name Role Phone PCP, PATIENT DOES NOT HAVE A Primary Care Physician Unavaila ble [email or web address]_S Attending Clinician Unavailable GERARD WEAVER Attending Clinician Unavailable BEE CAZARES Attending Clinician Unavailable MAR TATE Attending Clinician Unavailable LAB90 Attending Clinician Unavailable PROVIDERSTACEY Attending Clinician Unavailable PITO CANDELARIA Attending Clinician Unavailable Mar Tate MD Attending Clinician [phone] Only, Ang Db Test Attending Clinician Unavailable Rachel Gunter MD Attending Clinician RACHEL GUNTER Attending Clinician Unavailable Rylie Kapadia RN Attending Clinician Unavailable Jaycee Hernandez Attending Clinician [email or web address]_Kadiyala_S Admitting Clinician Unavailable Payers Payer Name Policy Type Policy Number Effective Date Expiration Date S benitez BCBS 2 [id number] 2021 00:00:00 Problems Condition Condition Condition Status Onset Resolution Last Treating Co mments Source Name Details Category Date Date Treatment Clinician Date Mild Mild Disease Active Jodi intermitte intermitte 06-24 Se ybold nt asthma nt asthma 00:00: - without without 00 Externa complicati complicati l on on ([facility]) ([facility]) No known No known Disease Kelse y active active Seybold problems problems Allergies, Adverse Reactions, Alerts Allergy Allergy Status Severity Reaction(s) Onset Inactive Treating Comm ents Source Name Type Date Date Clinician NO KNOWN Drug Active Univers ALLERGIE Class ity of S [facility] Social History Social Habit Start Date Stop Date Quantity Comments Source Gender identity 2021-10-30 Identifies as Jodi Campbell - 07:42:55 female gender External (finding) Sexual orientation Jodifay Campbell - External Exposure to Not sure Jodi Secolumba blair SARS-CoV-2 (event) History of Social 2023-07-14 2023-07-14 Jodi Campbell - function 00:00:00 00:00:00 External Tobacco use and 2021-07-14 2021-07-14 Never used Universit y of exposure 00:00:00 00:00:00 [facility] Sex Ass[birth year] At [birth year] F Jodi rajan - 00:00:00 00:00:00 External Smoking Status Start Date Stop Date Source Never smoked tobacco Jodi goel - External Medications Ordered Filled Start Stop Current Ordering Indication Dosage Frequency Signature Comments Components Source Medication Medication Date Date Medication? Clinician (SIG) Name Name Topiramate Yes [id number] 25mg Take 1 Jodi 25 MG oral 9-27 tablet (25 Sey bold Tablet 00:00: mg total) - 00 by mouth 2 Externa times l daily. Semaglutide Yes [id number] .25mg Inject Jodi -Weight 9-27 0.25 mg Seybold Management 00:00: into the - (Wegovy) 00 skin once Pattern Stamper a 0.25 a week. l MG/0.5ML subcutaneou s Solution Auto-inject or Topiramate Yes [id number] 25mg Take 1 Jodi 25 MG oral 9-27 tablet (25 Sey bold Tablet 00:00: mg total) - 00 by mouth 2 Externa times l daily. Semaglutide Yes [id number] .25mg Inject Jodi -Weight 9-27 0.25 mg Seybold Management 00:00: into the - (Wegovy) 00 skin once Pattern Stamper a 0.25 a week. l MG/0.5ML subcutaneou s Solution Auto-inject or Nebulizer Yes Use as Jodi does not 06-18 directed. Seybol d apply Misc 00:00: Please - 00 include Externa adult l tubing and mask. Nebulizer Yes Use as Jodi does not 06-18 directed. Seybol d apply Misc 00:00: Please - 00 include Externa adult l tubing and mask. Albuterol Yes Jodi (PROVENTIL) 06-17 Seybold (2.5 00:00: - MG/3ML) 00 Externa 0.083% l inhalation Inhalant Solution Albuterol Yes Jodi (PROVENTIL) 06-17 Seybold (2.5 00:00: - MG/3ML) 00 Externa 0.083% l inhalation Inhalant Solution Albuterol 2022- No 2.5mg Q.25D Take 2.5 K elsey Sulfate 2.5 06-17 10-02 mg by Seybol d MG/0.5ML 00:00: 00:00 nebulizati - inhalation 00 :00 on every 6 Ext reyes Inhalant hours as l Solution needed for wheezing. Albuterol 2022- Yes 2.5mg Q.25D Take 2.5 K elsey Sulfate 2.5 06-17 10-01 mg by Seybol d MG/0.5ML 00:00: 04:59 nebulizati - inhalation 00 :00 on every 6 Ext reyes Inhalant hours as l Solution needed for wheezing. Albuterol 2022- Yes 2.5mg Q.25D Take 2.5 K elsey Sulfate 2.5 06-17 10-01 mg by Seybol d MG/0.5ML 00:00: 04:59 nebulizati - inhalation 00 :00 on every 6 Ext reyes Inhalant hours as l Solution needed for wheezing. PAXLOVID 2022- No Take two Shanon ey STANDARD 06-17 09-27 150 mg Seybold (30) 00:00: 00:00 nirmatrelv - (300/100) 00 :00 ir (pink) Exter na Therapy tablets l Pack with one 100 mg ritonavir (white) tablet by mouth two times daily for 5 days. PAXLOVID 2022-0 2022- Yes Take two Shanon ey STANDARD 06-17 09-06 150 mg Seybold (30) 00:00: 04:59 nirmatrelv - (300/100) 00 :00 ir (pink) Exter na Therapy tablets l Pack with one 100 mg ritonavir (white) tablet by mouth two times daily for 5 days. Albuterol 0 Yes [id number] 2{puff} Q4H Inhale 2 Jodi HFA 108 (90 6-01 puffs into Se ybold Base) 00:00: the lungs - MCG/ACT IN 00 every 4 Pattern Stamper a AERS hours as l needed for wheezing Doxycycline 0 Yes [id number] 100mg Take 1 Jodi Hyclate 100 6-01 tablet Seybol d MG oral 00:00: (100 mg - Tablet 00 total) by Externa mouth 2 l times daily Fluticasone 0 Yes [id number] 1{puff} Inhale 1 Jodi -Salmeterol 6-01 puff into Sey bold (Advair 00:00: the lungs - Diskus) 00 2 times Externa 100-50 daily l MCG/ACT inhalation AEROSOL POWDER, BREATH ACTIVATED Albuterol Yes [id number] 2{puff} Q4H Inhale 2 Jodi HFA 108 (90 6-01 puffs into Se ybold Base) 00:00: the lungs - MCG/ACT IN 00 every 4 Pattern Stamper a AERS hours as l needed for wheezing Doxycycline 2022-0 Yes [id number] 100mg Take 1 Jodi Hyclate 100 6-01 tablet Seybol d MG oral 00:00: (100 mg - Tablet 00 total) by Externa mouth 2 l times daily Albuterol 2022-0 Yes [id number] 2{puff} Q4H Inhale 2 Jodi HFA 108 (90 6-01 puffs into Se ybold Base) 00:00: the lungs - MCG/ACT IN 00 every 4 Pattern Stamper a AERS hours as l needed for wheezing Albuterol 2022-0 Yes [id number] 2{puff} Q4H Inhale 2 Jodi HFA 108 (90 6-01 puffs into Se ybold Base) 00:00: the lungs - MCG/ACT IN 00 every 4 Pattern Stamper a AERS hours as l needed for wheezing Fluticasone 2022- No [id number] 1{puff} Inhale 1 Jodi -Salmeterol 6- 08-31 puff into Se ybold (Advair 00:00: 00:00 the lungs - Diskus) 00 :00 2 times Externa 100-50 daily l MCG/ACT inhalation AEROSOL POWDER, BREATH ACTIVATED Doxycycline 2022- No [id number] 100mg Take 1 Jodi Hyclate 100 6- 06- tablet Seybo ld MG oral 00:00: 00:00 (100 mg - Tablet 00 :00 total) by Externa mouth 2 l times daily for 7 days Doxycycline 2022- No [id number] 100mg Take 1 Jodi Hyclate 100 2-13 06- tablet Seybo ld MG oral 00:00: 00:00 (100 mg - Tablet 00 :00 total) by Externa mouth 2 l times daily for 7 days Doxycycline 2022- No [id number] 100mg Take 1 Jodi Hyclate 100 2-13 02-21 tablet Seybo ld MG oral 00:00: 05:59 (100 mg - Tablet 00 :00 total) by Externa mouth 2 l times daily for 7 days Albuterol Yes [id number] 2{puff} Q4H Inhale 2 Jodi HFA 108 (90 6-20 puffs into Se ybold Base) 00:00: the lungs - MCG/ACT IN 00 every 4 Pattern Stamper a AERS hours as l needed for wheezing Albuterol 2022- No [id number] 2{puff} Q4H Inhale 2 Jodi HFA 108 (90 6-20 06-01 puffs into S eybold Base) 00:00: 00:00 the lungs - MCG/ACT IN 00 :00 every 4 Pattern Stamper a AERS hours as l needed for wheezing Fluticasone Yes 1{puff} Inhale 1 Jodi -Salmeterol 1-17 puff into Sey bold (Advair 00:00: the lungs - Diskus) 00 2 times Externa 100-50 daily l MCG/DOSE inhalation AEROSOL POWDER, BREATH ACTIVATED Fluticasone 0 2022- No 1{puff} Inhale 1 Jodi -Salmeterol 1-17 06-01 puff into Se ybold (Advair 00:00: 00:00 the lungs - Diskus) 00 :00 2 times Externa 100-50 daily l MCG/DOSE inhalation AEROSOL POWDER, BREATH ACTIVATED Albuterol 0 2021- No Inhale Kelse y HFA 108 (90 1-13 01-13 into the Sey bold Base) 08:05: 00:00 lungs MCG/ACT IN 36 :00 AERS Amoxicillin 0 Yes [id number] 1{tbl} Take 1 Jodi -Pot 1-13 tablet by Seybold Clavulanate 00:00: mouth 2 875-125 MG 00 times oral Tablet daily Albuterol Yes [id number] 2{puff} Q4H Inhale 2 Jodi HFA 108 (90 1-13 puffs into Se ybold Base) 00:00: the lungs MCG/ACT IN 00 every 4 AERS hours as needed for wheezing Etodolac 2020-10 Yes [id number] 400mg Take 1 Jodi 400 MG oral 0-25 tablet Seybol d Tablet 00:00: (400 mg 00 total) by mouth 2 times daily Etodolac 2020-10 Yes [id number] 400mg Take 1 Jodi 400 MG oral 0-25 tablet Seybol d Tablet 00:00: (400 mg 00 total) by mouth 2 times daily Etodolac 2020-10 Yes [id number] 400mg Take 1 Jodi 400 MG oral 0-25 tablet Seybol d Tablet 00:00: (400 mg 00 total) by mouth 2 times daily Albuterol 2020-10 Yes Inhale Jodi HFA 108 (90 0-06 into the Seyb old Base) 10:12: lungs MCG/ACT IN 48 AERS Fluticasone 2020-10 Yes Inhale Shanon ey -Salmeterol 0-06 into the Seyb old (Advair 10:12: lungs Diskus) 48 100-50 MCG/DOSE inhalation AEROSOL POWDER, BREATH ACTIVATED Albuterol 2020-10 Yes Inhale Jodi HFA 108 (90 0-06 into the Seyb old Base) 10:12: lungs MCG/ACT IN 48 AERS Fluticasone 2020-10 Yes Inhale Shanon ey -Salmeterol 0-06 into the Seyb old (Advair 10:12: lungs Diskus) 48 100-50 MCG/DOSE inhalation AEROSOL POWDER, BREATH ACTIVATED Albuterol 2020-10 Yes Inhale Jodi HFA 108 (90 0-06 into the Seyb old Base) 10:12: lungs MCG/ACT IN 48 AERS Fluticasone 2020-10 Yes Inhale Shanon ey -Salmeterol 0-06 into the Seyb old (Advair 10:12: lungs Diskus) 48 100-50 MCG/DOSE inhalation AEROSOL POWDER, BREATH ACTIVATED Fluticasone 2020-10 Yes Inhale Shanon ey -Salmeterol 0-06 into the Seyb old (Advair 10:12: lungs Diskus) 48 100-50 MCG/DOSE inhalation AEROSOL POWDER, BREATH ACTIVATED Cyclobenzap 2020-10 Yes [id number] 10mg Q.[id number] Take 1 Jodi rine HCl 10 0-06 [id number] tablet (10 Seybold MG oral 00:00: 3D mg total) Tablet 00 by mouth 3 times daily as needed for muscle spasms Meloxicam 2020-10 Yes [id number] 7.5mg Take 1 Jodi 7.5 MG oral 0-06 tablet Seybol d Tablet 00:00: (7.5 mg 00 total) by mouth daily Phentermine 2020-10 Yes [id number] 37.5mg Take 1 Jodi HCl 37.5 MG 0-06 capsule Seybo ld oral 00:00: (37.5 mg Capsule 00 total) by mouth every morning Cyclobenzap 2020-10 Yes [id number] 10mg Q.[id number] Take 1 Jodi rine HCl 10 0-06 [id number] tablet (10 Seybold MG oral 00:00: 3D mg total) Tablet 00 by mouth 3 times daily as needed for muscle spasms Phentermine 2020-10 Yes [id number] 37.5mg Take 1 Jodi HCl 37.5 MG 0-06 capsule Seybo ld oral 00:00: (37.5 mg Capsule 00 total) by mouth every morning Cyclobenzap 2020-10 Yes [id number] 10mg Q.[id number] Take 1 Jodi rine HCl 10 0-06 [id number] tablet (10 Seybold MG oral 00:00: 3D mg total) Tablet 00 by mouth 3 times daily as needed for muscle spasms Phentermine 2020-10 Yes [id number] 37.5mg Take 1 Jodi HCl 37.5 MG 0-06 capsule Seybo ld oral 00:00: (37.5 mg Capsule 00 total) by mouth every morning Cyclobenzap 2020-10 Yes [id number] 10mg Q.[id number] Take 1 Jodi rine HCl 10 0-06 [id number] tablet (10 Seybold MG oral 00:00: 3D mg total) Tablet 00 by mouth 3 times daily as needed for muscle spasms Phentermine 2020-10 Yes [id number] 37.5mg Take 1 Jodi HCl 37.5 MG 0-06 capsule Seybo ld oral 00:00: (37.5 mg Capsule 00 total) by mouth every morning Meloxicam 2020-10- No [id number] 7.5mg Take 1 Jodi 7.5 MG oral 0-06 10-25 tablet Seybo ld Tablet 00:00: 00:00 (7.5 mg 00 :00 total) by mouth daily Azithromyci 2020-10- No [id number] Take 2 Jodi n 250 MG 0-06 10-12 tablets by Seyb old oral Tablet 00:00: 04:59 mouth on 00 :00 day 1 then 1 tablet by mouth daily for 4 days thereafter . ALBUTEROL Yes Inhale. Unive rs INHALE 07-14 ity of 15:12: [address] fluticasone Yes Inhale. Uni vers propion/saqib 07-14 ity of meterol 15:12: [place] ([address] DISKUS Branch INHALE) ALBUTEROL Yes Inhale. Unive rs INHALE 07-14 ity of 15:12: [address] fluticasone Yes Inhale. Uni vers propion/saqib 07-14 ity of meterol 15:12: [place] ([address] DISKUS [place] INHALE) ALBUTEROL Yes Inhale. Unive rs INHALE 07-14 ity of 15:12: [place] [address] fluticasone Yes Inhale. Uni vers propion/saqib 9- ity of meterol 15:12: [place] ([place] [address] [address] DISKUS Branch INHALE) Immunizations Ordered Immunization Filled Immunization Date Status Commen ts Source Name Name Influenza, Unknown Completed Jodi ybold - Injectable, Mdck, Externa l Preservative Free, Quadrivalent Influenza, Unknown Completed Jodi Seybold - Injectable, Mdck, Externa l Preservative Free, Quadrivalent Vital Signs Vital Name Observation Time Observation Value Comments Source Systolic blood 2023-07-19 19:06:00 110 mm[Hg] Jodi Seybold - pressure External Diastolic blood 2023-07-19 19:06:00 60 mm[Hg] Darleen y Seybold - pressure External Heart rate 2023-07-19 19:06:00 69 /min Jodi S eybold - External Body temperature 2023-07-19 19:06:00 37 Pooja Shanon ey Seybold - External Respiratory rate 2023-07-19 19:06:00 18 /min Shanon ey Seybold - External Body height 2023-07-19 19:06:00 167.6 cm Jodi Finch eybold - External Body weight 2023-07-19 19:06:00 122.244 kg Jodi S eybold - External BMI 2023-07-19 19:06:00 43.50 kg/m2 Jodi Finch eybold - External Oxygen saturation in 2023-07-19 19:06:00 96 /min Jodi Campbell - Arterial blood by External Pulse oximetry Systolic blood 2023-07-14 18:08:00 125 mm[Hg] Jodi Seybold - pressure External Diastolic blood 2023-07-14 18:08:00 73 mm[Hg] Darleen y Seybold - pressure External Heart rate 2023-07-14 18:08:00 72 /min Jodi S eybold - External Body temperature 2023-07-14 18:08:00 36.61 Pooja Shanon ey Seybold - External Respiratory rate 2023-07-14 18:08:00 15 /min Shanon ey Seybold - External Body height 2023-07-14 18:08:00 167.6 cm Jodi S eybold - External Body weight 2023-07-14 18:08:00 126.554 kg Jodi S eybold - External BMI 2023-07-14 18:08:00 45.03 kg/m2 Jodi S eybold - External Oxygen saturation in 2023-07-14 18:08:00 99 /min Jodi Seybold - Arterial blood by External Pulse oximetry Systolic blood 2023-03-18 21:13:00 110 mm[Hg] Jodi Seybold - pressure External Diastolic blood 2023-03-18 21:13:00 66 mm[Hg] Kelse y Seybold - pressure External Heart rate 2023-03-18 21:13:00 72 /min Jodi S eybold - External Body temperature 2023-03-18 21:13:00 36.89 Pooja Shanon ey Seybold - External Respiratory rate 2023-03-18 21:13:00 16 /min Shanon ey Seybold - External Body height 2023-03-18 21:13:00 167.6 cm Jodi S eybold - External Body weight 2023-03-18 21:13:00 120.929 kg Jodi S eybold - External BMI 2023-03-18 21:13:00 43.03 kg/m2 Jodi S eybold - External Oxygen saturation in 2023-03-18 21:13:00 95 /min Jodi Seybold - Arterial blood by External Pulse oximetry Systolic blood 2021-08-20 13:01:00 136 mm[Hg] Jodi Seybold pressure Diastolic blood 2021-08-20 13:01:00 62 mm[Hg] Kelse y Seybold pressure Heart rate 2021-08-20 13:01:00 68 /min Jodi S eybold Body temperature 2021-08-20 13:01:00 36.78 Pooja Shanon ey Seybold Respiratory rate 2021-08-20 13:01:00 14 /min Shanon ey Seybold Body height 2021-08-20 13:01:00 167.6 cm Jodi S eybold Body weight 2021-08-20 13:01:00 116.574 kg Jodi S eybold BMI 2021-08-20 13:01:00 41.48 kg/m2 Jodi S eybold Systolic blood 2021-08-11 15:26:00 127 mm[Hg] Jodi Seybold pressure Diastolic blood 2021-08-11 15:26:00 64 mm[Hg] Kelse y Seybold pressure Heart rate 2021-08-11 15:26:00 61 /min Jodi Finch eybold Body temperature 2021-08-11 15:26:00 36.39 Pooja Shanon ey Seybold Body height 2021-08-11 15:26:00 167.6 cm Jodi Finch eybold Body weight 2021-08-11 15:26:00 71.578 kg Jodi Finch eybold BMI 2021-08-11 15:26:00 25.47 kg/m2 Jodi Finch eybold Systolic blood 2021-07-23 15:07:00 120 mm[Hg] Jodi Seybold pressure Diastolic blood 2021-07-23 15:07:00 64 mm[Hg] Kelse y Seybold pressure Heart rate 2021-07-23 15:07:00 64 /min Jodi sandersboellyn Body temperature 2021-07-23 15:07:00 35.67 Pooja Shanon ey Seybold Respiratory rate 2021-07-23 15:07:00 12 /min Shanon Campbell Body height 2021-07-23 15:07:00 167.6 cm Jodi sandersboellyn Body weight 2021-07-23 15:07:00 122.018 kg Jodi sandersbold BMI 2021-07-23 15:07:00 43.42 kg/m2 Jodi sandersbold Systolic blood 2021-07-14 20:11:00 119 mm[Hg] [facility] Diastolic blood 2021-07-14 20:11:00 65 mm[Hg] [facility] Heart rate 2021-07-14 20:11:00 70 /min [facility] Body temperature 2021-07-14 20:11:00 37.39 [facility]ja [facility] 2021-07-14 20:11:00 18 /[facility] Body height 2021-07-14 20:11:[address] [facility] Body weight 2021-07-14 20:11:[address] [facility] BMI 2021-07-14 20:11:00 42.29 kg/m2 [facility] Oxygen saturation in 2021-07-14 20:11:00 95 /min [facility] Arterial blood by [facility] Pulse oximetry Branch Procedures Procedure Date / Time Performed Performing Clinician Sourc e D-DIMER 2021-08-11 16:29:00 Mar Tate Somogyi URINALYSIS, ROUTINE 2021-07-23 17:37:00 Mar Tate Somogyi HGB A1C WITH MBG 2021-07-23 16:18:00 Mar Tate ESTIMATION Somogyi LIPID PANEL 2021-07-23 16:18:00 Mar Tate Somogyi CMP14+CBC/D/PLT+TSH 2021-07-23 16:18:00 Mar Tate W/RFLX Somogyi POCT GRP A STREP 2021-07-14 00:00:00 Jaycee [facility] ([facility]) [facility] Encounters Start End Encounter Admission Attending Care Care Encounter Source Date/Time Date/Time Type Type Clinicians Facility Department ID 2023-08-14 2023-08-14 Outpatient GC_GCBZW_Ka PRIV PRIV [id number] [facility] 00:00:00 00:00:00 diyala_S [id number] Medic al 2023-08-11 2023-08-11 Outpatient JODI WEAVER [id number] Jodi 13:30:00 13:30:00 GERARD Cisnerosol rossy 2023-07-26 2023-07-26 Outpatient JODI CAZARES [id number] Jodi 00:00:00 00:00:00 BEE Cisnerosol rossy 2023-07-19 2023-07-19 Outpatient JODI TATE [id number] Jodi 14:15:00 14:15:00 MAR blair 2023-07-15 2023-07-15 Outpatient LAB90 JODI VARNER [id number] Jodi 16:10:00 16:10:00 Seybol d 2023-07-15 2023-07-15 Outpatient JODI WEAVER [id number] Jodi 00:00:00 00:00:00 GERARD Seybol d 2023-07-14 2023-07-14 Outpatient JODI WEAVER [id number] Jodi 13:00:00 13:00:00 GERARD Seybol d 2023-06-25 2023-06-25 Outpatient JODI WEAVER [id number] Jodi 00:00:00 00:00:00 GERARD Seybol d 2023-06-18 2023-06-18 Outpatient JODI CAZARES [id number] Jodi 00:00:00 00:00:00 BEE Seybol d 2023-06-17 2023-06-17 Outpatient JODI CAZARES [id number] Jodi 16:30:00 16:30:00 BEE Seybol d 2023-06-17 2023-06-17 Outpatient JODI CAZARES [id number] Jodi 00:00:00 00:00:00 BEE Seybol d 2023-04-27 2023-04-27 Outpatient JODI TATE [id number] Jodi 00:00:00 00:00:00 MAR Seybol d 2023-04-01 2023-04-01 Outpatient JODI TATE [id number] Jodi 00:00:00 00:00:00 MAR Seybol d 2023-03-18 2023-03-18 Outpatient JODI TATE [id number] Jodi 16:15:00 16:15:00 MAR Seybol d 2023-03-17 2023-03-17 [place] [id number] Jodi 10:45:00 10:45:00 VIDEOVISITN Se mohini SHEN 2022-11-30 2022-11-30 Outpatient PITO CANDELARIA [id number] Jodi 14:15:00 14:15:00 Seybol d 2022-06-29 2022-06-29 Outpatient JODI WEAVER [id number] Jodi 00:00:00 00:00:00 GERARD Seybol d 2022-06-25 2022-06-25 Outpatient OJDI WEAVER JODI [id number] Jodi 00:00:00 00:00:00 GERARD Seybol d 2022-06-24 2022-06-24 Outpatient JODI JODI [id number] Jodi 14:40:00 14:40:00 Seybol d 2022-06-24 2022-06-24 Outpatient LAB90 JODI JODI [id number] Jodi 11:45:00 11:45:00 Seybol d 2022-06-24 2022-06-24 Outpatient MEG JODI VARNER [id number] Jodi 11:00:00 11:00:00 GERARD Seybol d 2022-06-24 2022-06-24 Office STEVETex Lainez [id number] Jodi 11:00:00 11:00:00 Visit GERARD Gillespie [id number] Se mohini [id number] [id number] 2021-11-03 2021-11-03 Outpatient BEBETO JODI VARNER [id number] Jodi 00:00:00 00:00:00 MAR Cisnerosol d 2021-10-30 2021-10-30 Telemedici [place], [place] [id number] Jodi 08:00:00 08:09:11 ne Mar Gillespie [id number] Se mohini Somogyi [id number] 2021-10-27 2021-10-27 Outpatient R [facility] [id number] Univers 20:15:00 20:15:00 [id number] ity [facility] 2021-10-27 2021-10-27 Laboratory Only, Ang Db Test [facility] 1.2.8 [id number] Univers 20:15:00 20:15:00 Only Rachel Gunter [id number] David as TEJ?BLEA [id number] [address] OFFICE BUILDING 2021-10-27 2021-10-27 Outpatient R RAISA, [facility] [id number] Univers 20:15:00 20:11:04 RACHEL gordon [facility] 2021-09-09 2021-09-09 Outpatient JODI TATE [id number] Jodi 00:00:00 00:00:00 MAR Seybol d 2021-08-20 2021-08-20 Office Tex Tate [id number] Jodi 07:58:29 08:28:29 Visit Mar Gillespie [id number] Se ybold Somogyi [id number] [id number] 2021-08-11 2021-08-11 Outpatient LAB90 JODI VARNER [id number] Jodi 11:25:00 11:25:00 Seybol d 2021-08-11 2021-08-11 Office Tex Tate [id number] Jodi 10:24:00 10:54:00 Visit Mar Jose Miguel [id number] Se mohini Clementsogyi 1.2.7.2.686 [id number] 2021-08-11 2021-08-11 Outpatient JODI TATE [id number] Jodi 09:30:00 09:30:00 MAR Pritchettybol d 2021-07-23 2021-07-23 Outpatient LAB90 JODI VARNER [id number] Jodi 11:00:00 11:00:00 Seybol d 2021-07-23 2021-07-23 Office Tex Tate [id number] Jodi 09:55:21 10:25:21 Visit Mar Gillespie [id number] Se ybold Somogyi [id number] 2021-07-15 2021-07-15 Letter BRIT Kapadia [id number] [place] [address] 00:00:00 00:00:00 (Out) Rylie LIRIANO [id number] [facility] [id number] David as [id number] [place] [address] Branch 2021-07-14 2021-07-14 Urgent Jaycee Allen [facility] 1.2.840. [id number] Univers 14:58:57 15:18:57 Rachel Goldberg [facility] [id number] itRey [id number] David as Tej?Blea [id number] Ak dicelvira marilyn [address] [place] [address] Medical Office Building 2021-07-14 2021-07-14 Outpatient Roman GUNTER [facility] [id number] Univers 15:00:00 15:00:00 [facility] Results Test Description Test Time Test Comments Results Result Comments Source D-DIMER 2021-08-11 20:00:00 Test Item Value Reference Range Interpretation Comme nts D-DIMER (test code = See_Comment Accordi ng to the assay 50896-6) nursing support worker's published package insert, anormal (<0.50 mg/L FEU) D-dimer result in conjunction with a non-high clinical probability ass essment, excludes deep vein throm bosis (DVT)and pulmonary embol ism (PE) with high sensitivit y. ? .D-dimer values increase with age and this can make V TE exclusion ofan older populatio n difficult. To address this, melissa veloz [employer], based on best available evidence and recent guidelin es,recommends that clinicians use age-adjusted D-dimer thresho lds inpatients greater than 50 years of age with: a) a low probability ofPE who do not meet all Pulmonary Embolism Rule O ut Criteria, orb) in those with i ntermediate probability of PE. The formula for anage-adjus blue D-dimer cut-off is "age /100". For example, a 60 y ear oldpatient would have an a ge-adjusted cut-off of 0.60 mg/L FEU and an80 year old 0 .80 mg/L FEU. [Automated mess age] The system which generated this result transmitted ref erence range: 0.00 - 0.49 mg/ L FEU. The reference range was not used to interpret this result as normal/abnormal . JEANINE (test code = [facility] results JEANINE) reported in Eastern Time. [facility] Clinical Information:SRC:Blo od, venous*Venipunc ture ? [facility] Source of Specimen:Blood, venous*Venipunc Jodi CampbellHGB A1C WITH MBG [id number] 16:16:00 Test Item Value Reference Range Interpretation Comments HEMOGLOBIN A1C (test 6.0 % 4.8-5.6 H ? code = 4548-4) ? . ? Prediabetes: 5. 7 - 6.4 ? Diabetes: >6.4 ? Glycemic control for adults with diabetes: <7.0 ESTIM. AVG GLU (EAG) 126 mg/dL (test code = 83075-8) JEANINE (test code = JEANINE) [facility] results reported in Eastern Time. [facility] Clinical Information:SRC: Blood, venous*Venipunc ture ? [facility] Source of Specimen:Blood, venous*Venipunc Lab Interpretation Abnormal (test code = 84227-0) Jodi [id number]+CBC/D/PLT+TSH [id number] 14:05:00 Test Item Value Reference Range Interpretation Comments GLUCOSE, SERUM (test 89 mg/dL 65-99 code = 2345-7) BUN (test code = 15 mg/dL 8-27 3094-0) CREATININE, SERUM 0.69 mg/dL 0.57-1.00 (test code = 2160-0) EGFR IF NONAFRICN AM 94 mL/min/1.73 >59 (test code = 48415-6) EGFR IF AFRICN AM 109 mL/min/1.73 >59 [facility] (test code = [place] [address]-4) eGFR in complia nce with the curren t ?recommendation s of the National [employer] on. [facility] will ?update reporti ng as new guidelin es are published f rom the NKF-ASN ?Ta sk force. BUN/CREATININE RATIO 12-28 (test code = 3097-3) SODIUM, SERUM (test 142 mmol/L 134-144 code = 2951-2) POTASSIUM, SERUM 4.2 mmol/L 3.5-5.2 (test code = 2823-3) CHLORIDE, SERUM 104 mmol/L 96-106 (test code = 2075-0) CARBON DIOXIDE, 27 mmol/L 20-29 TOTAL (test code = 8-9) CALCIUM, SERUM (test 9.4 mg/dL 8.7-10.3 code = 51592-6) PROTEIN, TOTAL, 6.4 g/dL 6.0-8.5 SERUM (test code = 2885-2) ALBUMIN, SERUM (test 4.2 g/dL 3.8-4.8 code = 1751-7) GLOBULIN, TOTAL 2.2 g/dL 1.5-4.5 (test code = 56751-7) A/G RATIO (test code 1.2-2.2 = 1759-0) BILIRUBIN, TOTAL 0.3 mg/dL 0.0-1.2 (test code = 1975-2) ALKALINE See_Comment Please note PHOSPHATASE, SERUM reference interval (test code = 6768-6) change* * [Automated message] The system which generated this result transmit blue reference range : 44 - 121 IU/L. The reference range was not used to interpret this result as normal/abnormal . AST (SGOT) (test See_Comment [Automated code = 1920-8) message] The system which generated this result transmit blue reference range : 0 - 40 IU/L. The reference range was not used to interpret this result as normal/abnormal . ALT (SGPT) (test See_Comment [Automated code = 1742-6) message] The system which generated this result transmit blue reference range : 0 - 32 IU/L. The reference range was not used to interpret this result as normal/abnormal . TSH (test code = See_Comment [Automated 77090-8) message] The system which generated this result transmit blue reference range : 0.450 - 4.500 uIU/mL. The reference range was not used to interpret this result as normal/abnormal . WHITE BLOOD CELL See_Comment [Automated (WBC) COUNT (test message] T he code = 6690-2) system which generated this result transmit blue reference range : 3.4 - 10.8 x10E3/uL. The reference range was not used to interpret this result as normal/abnormal . RED BLOOD CELL (RBC) See_Comment [Autom ated COUNT (test code = message] The 789-8) system which generated this result transmit blue reference range : 3.77 - 5.28 x10E6/uL. The reference range was not used to interpret this result as normal/abnormal . HEMOGLOBIN (test 13.3 g/dL 11.1-15.9 code = 718-7) HEMATOCRIT (test 41.2 % 34.0-46.6 code = 4544-3) MCV (test code = 93 fL 79-97 787-2) MCH (test code = 30.0 pg 26.6-33.0 785-6) MCHC (test code = 32.3 g/dL 31.5-35.7 786-4) RDW (test code = 13.4 % 11.7-15.4 788-0) PLATELETS (test code See_Comment [Autom ated = 777-3) message] The system which generated this result transmit blue reference range : 150 - 450 x10E3/uL. The reference range was not used to interpret this result as normal/abnormal . NEUTROPHILS (test 64 % Not Estab. code = 770-8) LYMPHS (test code = 21 % Not Estab. 736-9) MONOCYTES (test code 11 % Not Estab. = 5905-5) EOS (test code = 3 % Not Estab. 713-8) BASOS (test code = 1 % Not Estab. 706-2) NEUTROPHILS See_Comment [Automated (ABSOLUTE) (test message] Th e code = 751-8) system which generated this result transmit blue reference range : 1.4 - 7.0 x10E3/uL. The reference range was not used to interpret this result as normal/abnormal . LYMPHS (ABSOLUTE) See_Comment [Automate d (test code = 731-0) message] The system which generated this result transmit blue reference range : 0.7 - 3.1 x10E3/uL. The reference range was not used to interpret this result as normal/abnormal . MONOCYTES(ABSOLUTE) See_Comment [Automa blue (test code = 742-7) message] The system which generated this result transmit blue reference range : 0.1 - 0.9 x10E3/uL. The reference range was not used to interpret this result as normal/abnormal . EOS (ABSOLUTE) (test See_Comment [Autom ated code = 711-2) message] The system which generated this result transmit blue reference range : 0.0 - 0.4 x10E3/uL. The reference range was not used to interpret this result as normal/abnormal . BASO (ABSOLUTE) See_Comment [Automated (test code = 704-7) message] The system which generated this result transmit blue reference range : 0.0 - 0.2 x10E3/uL. The reference range was not used to interpret this result as normal/abnormal . IMMATURE 0 % Not Estab. GRANULOCYTES (test code = 55473-4) IMMATURE GRANS (ABS) See_Comment [Autom ated (test code = message] The 42364-5) system which generated this result transmit blue reference range : 0.0 - 0.1 x10E3/uL. The reference range was not used to interpret this result as normal/abnormal . JEANINE (test code = [facility] results JEANINE) reported in [place] Time. [facility] Clinical Information:SRC: Blood, venous*Venipunc ture ? [facility] Source of Specimen:Blood, venous*Venipunc Jodi SeyboldLIPID [id number] 14:05:00 Test Item Value Reference Range Interpretation Comments CHOLESTEROL, TOTAL (test 201 mg/dL 100-199 H code = 2093-3) TRIGLYCERIDES (test code = 67 mg/dL 0-149 2571-8) HDL CHOLESTEROL (test code 67 mg/dL >39 = 2085-9) VLDL CHOLESTEROL DARNELL (test 12 mg/dL 5-40 code = 47429-4) LDL CHOL CALC (NIH) (test 122 mg/dL 0-99 H code = 98632-6) JEANINE (test code = JEANINE) [facility] results reported in [place] Time. [facility] Clinical Information:[facility] Source of Specimen:Blood, venous*Venipunc Lab Interpretation (test Abnormal code = 81058-9) Jodi PritchettyboldURINALYSIS, [id number] 14:05:00 Test Item Value Reference Range Interpretation Comments SPECIFIC GRAVITY 1.005-1.030 (test code = 2965-2) PH (test code = 5.0-7.5 5803-2) URINE-COLOR (test Yellow Yellow code = 5778-6) APPEARANCE (test code Turbid Clear A = 5767-9) WBC ESTERASE (test Negative Negative code = 5799-2) PROTEIN (test code = Negative Negative/Trace 51185-2) GLUCOSE (test code = Negative Negative 2349-9) KETONES (test code = Negative Negative 2514-8) OCCULT BLOOD (test Negative Negative code = 5794-3) BILIRUBIN (test code Negative Negative = 5770-3) UROBILINOGEN,SEMI-QN 0.2 mg/dL 0.2-1.0 (test code = 74531-6) NITRITE, URINE (test Negative Negative code = 5802-4) MICROSCOPIC Microscopic not EXAMINATION (test indicated and not code = 29261-3) performed. JEANINE (test code = JEANINE) [facility] results reported in [place] Time. [facility] Clinical Information:SRC :Urine*Urine ?[facility] Source of Specimen:Urine* Urine Lab Interpretation Abnormal (test code = 87466-1) Jodi Lawson GRP A STREP (MOLECULAR)2021-07-14 20:30:00 Test Item Value Reference Range Interpretation Comments POCT GP A STREP (test code = Negative Negative - Negative 66327-6) [facility]
[2023-08-22] MEDS ORDERED: KETOROLAC 30 MG/ML INJ ONE (09:56)
[2023-08-22] MEDS ORDERED: CYCLOBENZAPRINE 10 MG TAB ONE (09:56)
--- NOTE | 2023-08-22 10:22 | RAD REPORT ---
EXAM DESCRIPTION: RAD - Femur Right - 08/22/2023 10:05 am CLINICAL HISTORY: PAIN COMPARISON: Femur Right dated 08/11/2021 TECHNIQUE: Right femur, 2 views. FINDINGS: No fracture is identified. Mild degenerative changes of the right hip. There is no disloca tion or periosteal reaction noted. Enthesopathy in the quadriceps tendon attachment. No acute or susp icious bony finding. IMPRESSION: No acute osseous abnormality. Chronic findings as above.
--- NOTE | 2023-08-22 10:56 | ER ---
Nurse's Notes [facility] Name: Mabel Gastelum Age: 63 yrs Sex: Female : 1960 Arrival Date: 08/22/2023 Time: 09:31 Bed 20 Private MD: Diagnosis: Pain in right leg-muscle strain Presentation: 08/22 09:32 Chief complaint: EMS states: PATIENT PRESENTS WITH RIGHT LEG INNER THIGH PAIN AFTER db SLIPPING AND DOING THE SPLITS WHILE CLEANING. EMS GAVE 975 MG TYLENOL AND PT TOOK 2 IBUPROFEN PRIOR TO EMS ARRIVAL. Coronavirus screen: Vaccine status: Patient reports receiving the 2nd dose of the covid vaccine. Client denies travel out of the [place] in the last 14 days. At this time, the client does not indicate any symptoms associated with coronavirus-19. Ebola Screen: Patient negative for fever greater than or equal to 101.5 degrees Fahrenheit, and additional compatible Ebola Virus Disease symptoms Patient denies exposure to infectious person. Patient denies travel to an Ebola-affected area in the 21 days before illness onset. No symptoms or risks identified at this time. Initial Sepsis Screen: Does the patient meet any 2 criteria? No. Patient's initial sepsis screen is negative. Does the patient have a suspected source of infection? No. Patient's initial sepsis screen is negative. Risk Assessment: Do you want to hurt yourself or someone else? Patient reports no desire to harm self or others. Onset of symptoms was August 22, 2023. Care prior to arrival: Medication(s) given: Tylenol, 975. 09:32 Method Of Arrival: EMS: [facility] db 09:32 Acuity: MICHAEL 3 db Triage Assessment: 09:32 General: Appears in no apparent distress. uncomfortable, Behavior is calm, cooperative. db Pain: Complains of pain in right leg. Neuro: Level of Consciousness is awake, alert, obeys commands, Oriented to person, place, time, situation, Speech is normal. Cardiovascular: No deficits noted. Respiratory: Airway is patent Respiratory effort is even, unlabored, Respiratory pattern is regular, symmetrical. GI: No deficits noted. No signs and/or symptoms were reported involving the gastrointestinal system. Musculoskeletal: Circulation, motion, and sensation intact. Capillary refill < 3 seconds, Range of motion: limited in right knee Reports pain in right leg. Historical: - Allergies: 09:51 No Known Allergies; db - PMHx: 09:51 Asthma; db - Immunization history:: Adult Immunizations unknown, Client reports receiving the 2nd dose of the Covid vaccine. - Social history:: Smoking status: Patient denies any tobacco usage or history of. - Family history:: not pertinent. - Hospitalizations: : No recent hospitalization is reported. Screenin:51 [facility] ED Fall Risk Assessment (Adult) History of falling in the last 3 months, db including since admission Yes- single mechanical fall (1 pt) Confusion or Disorientation No (0 pts) Intoxicated or Sedated No (0 pts) Impaired Gait No (0 pts) Mobility Assist Device Used No (0 pt) Altered Elimination No (0 pt) Score/Fall Risk Level 0 - 2 = Low Risk Oriented to surroundings, Maintained a safe environment. Abuse screen: Denies threats or abuse. Denies injuries from another. Nutritional screening: No deficits noted. Tuberculosis screening: No symptoms or risk factors identified. Assessment: 09:51 Reassessment: Patient appears in no apparent distress at this time. Patient and/or db family updated on plan of care and expected duration. Pain level reassessed. Patient is alert, oriented x 3, equal unlabored respirations, skin warm/dry/pink. XRAY AT PATIENT BEDSIDE. Pain: Complains of pain in right knee and right leg. Neuro: Level of Consciousness is awake, alert, obeys commands, Oriented to person, place, time, situation. 11:00 Reassessment: Patient appears in no apparent distress at this time. Patient and/or db family updated on plan of care and expected duration. Pain level reassessed. Patient is alert, oriented x 3, equal unlabored respirations, skin warm/dry/pink. Patient states symptoms have improved. Vital Signs: 09:32 BP 116 / 82; Pulse 76; Resp 18; Temp 98.4(O); Pulse Ox 97% on R/A; Weight 122.47 kg; db 10:00 BP 134 / 73; Pulse 60; Resp 16; Pulse Ox 98% on R/A; db 10:30 BP 110 / 62; Pulse 61; Resp 16; Pulse Ox 97% on R/A; db ED Course: 09:32 Arm band placed on Patient placed in an exam room. db 09:34 Patient arrived in ED. rn 09:34 Maxim Murillo MD is Attending Physician. rn 09:39 Monique Kraus, RN is Primary Nurse. db 09:50 Triage completed. db 09:51 Patient has correct armband on for positive identification. Bed in low position. Call db light in reach. Side rails up X 1. Pulse ox on. NIBP on. 10:07 XRAY Femur RIGHT In Process Unspecified. EDMS 11:12 Provided Education on: DISCHARGE. db 11:12 No provider procedures requiring assistance completed. Patient did not have IV access db during this emergency room visit. Administered Medications: 09:45 Drug: Ketorolac IM 30 mg IM once Route: IM; Site: right deltoid; db 11:13 Follow up: Response: No adverse reaction db 09:45 Drug: Cyclobenzaprine PO 10 mg PO once Route: PO; db 11:13 Follow up: Response: No adverse reaction db Medication: 09:51 VIS not applicable for this client. db Outcome: 10:56 Discharge ordered by MD. rn 11:12 Discharged to home via wheelchair, with family, db 11:12 Condition: stable 11:12 Discharge instructions given to patient, Instructed on discharge instructions, follow up and referral plans. Prescriptions given X 2, 11:13 Patient left the ED. db Signatures: Dispatcher [employer] EDGA Maxim Murillo MD MD rn Monique Kraus, RN RN db
--- NOTE | 2023-08-22 10:56 | EDPHYS ---
Physician Documentation [facility] Name: Mabel Gastelum Age: 63 yrs Sex: Female : 1960 Arrival Date: 08/22/2023 Time: 09:31 Bed 20 Private MD: ED Physician Maxim Murillo HPI: 08/22 10:47 This 63 yrs old Female presents to ER via EMS with complaints of thigh pain. rn 10:47 The patient presents with decreased range of motion, an injury, pain. The complaints rn affect the lateral aspect of right thigh and right hamstring. Onset: The symptoms/episode began/occurred just prior to arrival. Modifying factors: The symptoms are alleviated by remaining still, the symptoms are aggravated by movement. Severity of symptoms: At their worst the symptoms were moderate, in the emergency department the symptoms are unchanged. The patient has not experienced similar symptoms in the past. Patient reports slipped on a grape, did the splits, and reports pain in the right hamstring and lateral thigh. Reports most the pain from the splits and not the fall. No other injury.. Historical: - Allergies: 09:51 No Known Allergies; db - PMHx: 09:51 Asthma; db - Immunization history:: Adult Immunizations unknown, Client reports receiving the 2nd dose of the Covid vaccine. - Social history:: Smoking status: Patient denies any tobacco usage or history of. - Family history:: not pertinent. - Hospitalizations: : No recent hospitalization is reported. ROS: 10:47 Constitutional: Negative for fever, chills, and weight loss, MS/Extremity: Positive for rn right hamstring and thigh injury and pain Exam: 10:47 Constitutional: This is a well developed, well nourished patient who is awake, alert, rn and in no acute distress. MS/ Extremity: Pulses equal, no cyanosis. Neurovascular intact. Painful range of motion of right lower extremity especially with extension of leg. No focal bony tenderness or deformity. Mild tenderness right hamstring Vital Signs: 09:32 BP 116 / 82; Pulse 76; Resp 18; Temp 98.4(O); Pulse Ox 97% on R/A; Weight 122.47 kg; db 10:00 BP 134 / 73; Pulse 60; Resp 16; Pulse Ox 98% on R/A; db 10:30 BP 110 / 62; Pulse 61; Resp 16; Pulse Ox 97% on R/A; db MDM: 09:34 Patient medically screened. rn 10:47 Differential diagnosis: closed fracture, contusion, Strain, pulled muscle. Data rn reviewed: vital signs, nurses notes, radiologic studies, plain films, and as a result, I will discharge patient. Independent interpretation of the following test(s) in the Emergency Department X-Ray: My interpretation is X-ray right femur images negative for fracture per my interpretation. Counseling: I had a detailed discussion with the patient and/or guardian regarding the historical points, exam findings, and any diagnostic results supporting the discharge/admit diagnosis, radiology results, the need for outpatient follow up, to return to the emergency department if symptoms worsen or persist or if there are any questions or concerns that arise at home. Response to treatment: the patient's symptoms have markedly improved after treatment, and as a result, I will discharge patient. Special discussion: I discussed with the patient/guardian in detail that at this point there is no indication for admission to the hospital. It is understood, however, that if the symptoms persist or worsen the patient needs to return immediately for re-evaluation. ED course: I have personally reviewed all of the results, including but not limited to imaging deemed necessary to safely discharge this patient at this time. I personally went over all the results with the patient and answered all questions. Patient will follow-up with PCP and or specialist as discussed. Return precautions given and understood.. 08/22 09:34 Order name: XRAY Femur RIGHT; Complete Time: 10:35 rn Administered Medications: 09:45 Drug: Ketorolac IM 30 mg IM once Route: IM; Site: right deltoid; db 11:13 Follow up: Response: No adverse reaction db 09:45 Drug: Cyclobenzaprine PO 10 mg PO once Route: PO; db 11:13 Follow up: Response: No adverse reaction db Disposition Summary: 08/22/23 10:56 Discharge Ordered Notes: Location: Home rn Problem: new rn Symptoms: have improved rn Condition: Stable rn Diagnosis - Pain in right leg - muscle strain rn Followup: rn - With: Private Physician - When: As needed - Reason: Recheck today's complaints, Re-evaluation by your physician Discharge Instructions: - Discharge Summary Sheet rn - Muscle Strain rn - Musculoskeletal Pain rn Forms: - Medication Reconciliation Form rn - Thank You Letter rn - Antibiotic wound treatment rn - Prescription Opioid Use rn - Patient Portal Instructions rn - Leadership Thank You Letter rn - Work release form db Prescriptions: - Cyclobenzaprine 10 mg Oral tablet - take 1 tablet ORAL route every 8-12 hours As needed; 15 tablet; Refills: 0, rn Product Selection Permitted - Tramadol 50 mg Oral Tablet - take 1 tablet ORAL route every 8 hours as needed; 12 tablet; Refills: 0, rn Product Selection Permitted Signatures: Dispatcher [employer] Maxim Atkins MD MD rn Benton, Danielle, RN RN db
[2023-08-22 11:19] VITALS: TEMP 98.4
[2023-08-22 11:21] VITALS: BP 110/62; O2SAT 97
== END 2023-08-22 11:13 | disposition home or self-care (01) ==
LOC: ER 09:31
DX: S76.911A Strain of unspecified muscles, fascia and tendons at thigh level, right thigh, initial encounter (principal)
CPT/HCPCS: 96372; 99284